=== PATIENT | female | born 1950 | race Caucasian/White ===

== ENCOUNTER 2023-07-03 16:15 | Emergency (ER) | payer MEDICARE, OTHER, SELFPAY ==
[2023-07-03 16:19] VITALS: BP 165/78
[2023-07-03 16:34] LABS: % Basophils 0.5 % (0-2); % Eosinophils 8.3 % (0-6); % Immature Granulocytes 0.4 % (0-0.5); % Lymphocytes 35.5 % (20.5-51.1); % Monocytes 6.2 % (1.7-9.3); % Neutrophils 49.1 % (42.2-75.2); Absolute Basophils 0.1 10^3/uL (0-0.2); Absolute Eosinophils 0.8 10^3/uL (0-0.7); Absolute Lymphocytes 3.3 10^3/uL (1.2-3.4); Absolute Monocytes 0.6 10^3/uL (0.1-0.6); Absolute Neutrophils 4.6 10^3/uL (1.4-6.5); Hematocrit 39.3 % (37.0-47.0); Hemoglobin 13.3 g/dL (12.0-16.0); Mean Corp Hgb Conc. 33.8 g/dL (33.0-37.0); Mean Corpuscular Hgb 31.1 pg (27.0-31.0); Mean Platelet Volume 9.1 fL (7.4-10.4); Nucleated Red Blood Cells % 0 %; Platelet Count 273 10^3/uL (130-400); Red Blood Cell Count 4.27 10^6/uL (4.20-5.40); White Blood Cell Count 9.3 10^3/uL (4.8-10.8)
[2023-07-03 17:01] LABS: ALT (SGPT) 37 U/L (0-35); AST (SGOT) 37 U/L (14-36); Albumin 3.9 g/dl (3.5-5.0); Alkaline Phosphatase 77 U/L (38-126); Blood Urea Nitrogen 11 mg/dl (7-17); Calcium 9.2 mg/dl (8.4-10.2); Carbon Dioxide 26 mmol/L (22-30); Glucose 133 mg/dl (70-99); Total Bilirubin 0.5 mg/dl (0.2-1.3); Total Protein 6.1 g/dl (6.3-8.2); eGFR > 60.00
[2023-07-03 17:09] LABS: Chloride 102 mmol/L (98-107); Potassium 4.5 mmol/L (3.5-5.1); Sodium 139 mmol/L (135-145)
[2023-07-03 19:28] VITALS: BP 136/78
[2023-07-03 19:30] VITALS: BP 136/78; BMI 30.3
--- NOTE | 2023-07-03 19:35 | ED.GENMED ---
History of Present Illness
General
Chief Complaint: Dizziness
Source: patient
Time Seen by Provider: 07/03/23 19:11
Travel History
Have you had any contact with someone who has COVID-19?: No
Do you have any symptoms of coronavirus? Fever > 100 degrees, chills, cough, shortness of breath, sore throat, loss of taste or smell, muscle aches, or headache?: No
History of Present Illness
History of Present Illness:
73-year-old female sent to the emergency room from [facility] for evaluation of dizziness. Patient states she has been feeling dizzy for the past week. She has a mild headache on and off. Denies any focal weakness numbness or tingling.
Patient states she has had vertigo in the past and this does not feel like vertigo. She denies a sense of spinning but rather feels a wavy sensation when she gets up. She feels like she is not walking steadily. Symptoms are not present while she
lays perfectly still but started when she moves.
Past History
Past History
ED Past Medical History: Arrthythmia (afib), CAD, HTN, NIDDM, WI and Other (Spinal stenosis)
ED Past Surgical History: Gynecological (Hysterectomy), Orthopedic and Other (Hernia repair X2)
Social History
Tobacco: Former smoker
Alcohol: None
Drug: None
Personal:
Living: with family
Family History
Family History: Other (Father with spinal cancer, is breast cancer and diabetes in the family)
Phy Exam
Physical Exam
Physical Exam:
General: Awake, Alert, Oriented X3. No acute distress.
Vitals: unremarkable
Head: Atraumatic
Eyes: Pupils equal, EOMI, no nystagmus
Throat: Airway intact, no exudates
Neck: Trachea midline
Lungs: Clear and equal b/l
Heart: Regular rate, no murmurs
Abd: Soft, Nontender, No pulsatile mass
Neuro: Cranial nerves intact, muscle strength equal bilaterally, cerebellar exam normal
Skin: Warm, dry, no rash
Extremities: pulses equal b/l, no edema
Course
Orders/Labs/Results
Orders:
Orders
07/03/23 16:28
Complete Blood Count/With Diff Urgent
Comprehensive Metabolic Panel Urgent
07/03/23 19:21
CT Head W/o Iv Contrast Urgent
Comment:
Reason For Exam: dizziness, headache
Abnormal Lab Results
07/03/23
16:28
MCH 31.1 H pg
(27.0-31.0)
Absolute Eos (auto) 0.8 H 10^3/uL
(0-0.7)
Eosinophils % 8.3 H %
(0-6)
Glucose 133 H mg/dl
(70-99)
AST 37 H U/L
(14-36)
ALT 37 H U/L
(0-35)
Total Protein 6.1 L g/dl
(6.3-8.2)
07/03/23 16:28
07/03/23 16:28
Vital Signs
Initial and Last Documented VS:
Initial Vital Signs
Temp Pulse Resp BP Pulse Ox
97.8 F 67 18 165/78 97
07/03/23 16:19 07/03/23 16:19 07/03/23 16:19 07/03/23 16:19 07/03/23 16:19
Last Documented Vital Signs
Temp Pulse Resp BP Pulse Ox
97.8 F 62 18 116/65 92
07/03/23 16:19 07/03/23 19:30 07/03/23 19:30 07/03/23 20:00 07/03/23 20:30
MDM/Problems Addressed
Differential Diagnosis Includes:
Labyrinthitis, dehydration, anemia, CVA
MDM/Problems Addressed:
Patient has a normal neurologic exam here. Her labs are unremarkable. CT shows no acute abnormality. Patient has been having symptoms for over a week. My suspicion for acute ischemic event is low. Patient follow-up primary care doctor for
carotid ultrasounds if he feels appropriate.
Chronic conditions affecting care: HTN
*Radiology
Radiology exam reviewed: radiology read reviewed
*Pulse Oximetry
Patient hypoxic: no
*Critical Care Note
Total Time (30-74mins, 75-104mins- exclusive of procedures): Not Applicable
ED Attending Note
-
Portions of this chart may have been created with voice recognition software.� Occasional wrong word or��sound alike� substitutions may have occurred due to the inherent limitations of voice recognition software.
Discharge Plan
Departure
Patient Disposition: Home (Routine Discharge)
Date of Disposition: 07/03/23
Time of Disposition: 21:30
Patient with high blood pressure during this ER visit?: No
Condition: Good
Discharge Problem:
Dizziness
Instructions: Dizziness
Prescriptions:
No Action
lidocaine 1 PATCH adhesive patch,medicated
2 patch topical DAILY PRN (Reason: back pain)
aspirin 81 MG tablet,chewable
81 mg PO HS
Eliquis 5 MG tablet
5 mg PO BID
Patient Comments:
stop 2 days pre-op
carvedilol 6.25 MG tablet
6.25 mg PO BID Qty: 60 1RF
isosorbide mononitrate 30 mg Tablet Extended Release 24 Hr
30 mg PO DAILY
meclizine 25 mg Tablet
25 mg PO PRN PRN (Reason: vertigo)
metformin 1,000 mg Tablet
1,000 mg PO QPM
Systane Ultra 0.4-0.3 % Drops
1 drp BOTH EYES DAILY
lutein 20 mg Tablet
20 mg PO DAILY
Jardiance 10 mg Tablet
10 mg PO DAILY
melatonin 10 mg Tablet,Chewable
20 mg PO PRN PRN (Reason: sleep)
Glucocil
2 cap PO BID
Patient Comments:
after lunch & dinner
docusate sodium 100 mg Capsule
100 mg PO BID Qty: 60 0RF
oxycodone 5 mg Tablet
2.5 mg PO Q4HPRN PRN (Reason: moderate pain) Qty: 10 0RF
ibuprofen 600 mg tablet
600 mg PO Q6 Qty: 60 0RF
atorvastatin 40 MG tablet
40 mg PO QPM Qty: 30 0RF
acetaminophen [Tylenol Extra Strength] 500 MG tablet
1,000 mg PO Q8H PRN (Reason: mild pain) 0RF
Referrals:
Manuel Galvan, DO [Family Provider] -
Activity Restrictions/Additional Instructions:
Please follow up with Dr. Galvan for further evaluation of your dizziness. Your head CT today is normal.
Interventions
Interventions:
*Risk Screen - Suicide Last Done: 07/03/23 16:19
*General Assessment Last Done: 07/03/23 16:19
*Neglect/Abuse Screening Last Done: 07/03/23 16:19
*ED COVID-19 Vaccine History Last Done: 07/03/23 19:05
*Nursing Disposition Last Done: 07/03/23 21:57
ED- Neurological Assessment Last Done: 07/03/23 19:30
Discharge Date and Time
Discharge Date/Time: 07/03/23 21:57
[2023-07-03 20:00] VITALS: BP 116/65
== END 2023-07-03 21:57 | disposition home or self-care (01) ==
LOC: EMR 16:15
PROVIDERS: Emergency Medicine; EMERGENCY PHYSICIAN Emergency Medicine; FAMILY PHYSICIAN Family Medicine
DX: R42 Dizziness and giddiness (principal); R26.81 Unsteadiness on feet; I10 Essential (primary) hypertension; Z87.891 Personal history of nicotine dependence
CPT/HCPCS: 99284; 70450; 80053; 85025

== ENCOUNTER → 2023-07-31 06:33 | Outpatient (REF) | payer MEDICARE, OTHER, SELFPAY ==
[2023-07-31 09:59] LABS: % Basophils 0.5 % (0-2); % Eosinophils 6.2 % (0-6); % Immature Granulocytes 0.2 % (0-0.5); % Lymphocytes 30.8 % (20.5-51.1); % Monocytes 7.2 % (1.7-9.3); % Neutrophils 55.1 % (42.2-75.2); Absolute Basophils 0.1 10^3/uL (0-0.2); Absolute Eosinophils 0.6 10^3/uL (0-0.7); Absolute Monocytes 0.7 10^3/uL (0.1-0.6); Absolute Neutrophils 5.3 10^3/uL (1.4-6.5); Hematocrit 41.2 % (37.0-47.0); Hemoglobin 13.4 g/dL (12.0-16.0); Mean Corp Hgb Conc. 32.5 g/dL (33.0-37.0); Mean Corpuscular Hgb 30.7 pg (27.0-31.0); Mean Corpuscular Volume 94.5 fL (81.0-99.0); Mean Platelet Volume 9.5 fL (7.4-10.4); Nucleated Red Blood Cells % 0 %; Platelet Count 297 10^3/uL (130-400); Red Blood Cell Count 4.36 10^6/uL (4.20-5.40); Red Cell Dist. Width 14.1 % (11.5-14.5); White Blood Cell Count 9.6 10^3/uL (4.8-10.8)
[2023-07-31 10:08] LABS: Urine Albumin Negative (Neg - Trace); Urine Bilirubin Negative (Negative); Urine Character Clear (Clear); Urine Color Yellow; Urine Glucose 3+ (Negative); Urine Ketone Negative (Negative); Urine Leukocyte Trace (Negative); Urine Nitrite Negative (Negative); Urine Occult Blood 1+ (Negative); Urine Urobilinogen Negative (Neg - 1+)
[2023-07-31 10:16] LABS: ALT (SGPT) 27 U/L (0-35); AST (SGOT) 30 U/L (14-36); Albumin 4.2 g/dl (3.5-5.0); Alkaline Phosphatase 67 U/L (38-126); Blood Urea Nitrogen 17 mg/dl (7-17); Calcium 9.3 mg/dl (8.4-10.2); Carbon Dioxide 29 mmol/L (22-30); Chloride 103 mmol/L (98-107); Creatine Phosphokinase 53 U/L (30-135); Glucose 116 mg/dl (70-99); HDL Cholesterol 34 mg/dl; LDL Cholesterol, Calculated 23 mg/dl; Phosphorus 4.4 mg/dl (2.5-4.5); Potassium 4.3 mmol/L (3.5-5.1); Sodium 139 mmol/L (135-145); Total Bilirubin 0.5 mg/dl (0.2-1.3); Total Cholesterol 77 mg/dl (50-199); Total Protein 6.3 g/dl (6.3-8.2); Triglyceride 102 mg/dl (10-149); Uric Acid 3.8 mg/dl (2.5-6.2); Very Low Density Lipoprotein 20 mg/dl (0-30); eGFR > 60.00
[2023-07-31 10:26] LABS: Free T4 1.15 ng/dl (0.78-2.19)
[2023-07-31 10:40] LABS: CEA 2.46 ng/ml; TSH 2.67 uIU/ml (0.47-4.68)
[2023-07-31 11:04] LABS: Microalbumin, Random Urine 1.2 mg/dl (0.6-1.7); Microalbumin/creatinine Ratio 16.6 mg/g
[2023-07-31 11:42] LABS: Urine Mucus Few; Urine Squamous Cell 0-2 /LPF (Few)
[2023-07-31 11:43] LABS: Urine Amorphous Seen; Urine Bacteria Few (Negative); Urine White Cell 0-2 /HPF (0-5)
[2023-07-31 13:07] LABS: Glycohemoglobin (HgbA1c) 6.9 % (4.0-5.6)
== END ==
LOC: HWLAB 06:33
PROVIDERS: ATTENDING PHYSICIAN Family Medicine
DX: E11.69 Type 2 diabetes mellitus with other specified complication (principal); E07.9 Disorder of thyroid, unspecified; Z80.0 Family history of malignant neoplasm of digestive organs; I10 Essential (primary) hypertension; E78.5 Hyperlipidemia, unspecified
CPT/HCPCS: 36415; 80053; 80061; 81003; 81015; 82043; 82378; 82550; 82570; 83036; 83735; 84100; 84439; 84443; 84550; 85025

== ENCOUNTER → 2023-10-02 11:11 | Outpatient (REF) | payer MEDICARE, OTHER, SELFPAY | LOC: HWWDC 11:11 | PROVIDERS: ATTENDING PHYSICIAN Family Medicine | DX: Z12.31 Encounter for screening mammogram for malignant neoplasm of breast (principal); Z78.0 Asymptomatic menopausal state; Z87.891 Personal history of nicotine dependence | CPT/HCPCS: 71271; 77063; 77067; 77080 ==

== ENCOUNTER 2024-02-02 03:51 | Observation (INO) | payer MEDICARE, OTHER, SELFPAY ==
[2024-02-01 22:54] VITALS: BP 199/80
[2024-02-01 23:19] VITALS: BP 145/120
[2024-02-01 23:31] LABS: % Basophils 0.4 % (0-2); % Eosinophils 3.8 % (0-6); % Immature Granulocytes 0.3 % (0-0.5); % Monocytes 7.1 % (1.7-9.3); % Neutrophils 56.4 % (42.2-75.2); Absolute Eosinophils 0.4 10^3/uL (0-0.7); Absolute Lymphocytes 3.3 10^3/uL (1.2-3.4); Absolute Monocytes 0.7 10^3/uL (0.1-0.6); Absolute Neutrophils 5.8 10^3/uL (1.4-6.5); Hematocrit 41.6 % (37.0-47.0); Hemoglobin 14.1 g/dL (12.0-16.0); Mean Corp Hgb Conc. 33.9 g/dL (33.0-37.0); Mean Corpuscular Hgb 31.4 pg (27.0-31.0); Mean Corpuscular Volume 92.7 fL (81.0-99.0); Mean Platelet Volume 9.4 fL (7.4-10.4); Nucleated Red Blood Cells % 0 %; Platelet Count 280 10^3/uL (130-400); Red Blood Cell Count 4.49 10^6/uL (4.20-5.40); White Blood Cell Count 10.2 10^3/uL (4.8-10.8)
[2024-02-01 23:58] LABS: Troponin I < 0.012 ng/ml
[2024-02-02] VITALS (23 sets, daily range): BP systolic 99–152; BP diastolic 55–82; BMI 29.2; BMI 30.1
[2024-02-02 00:05] LABS: ALT (SGPT) 39 U/L (0-35); AST (SGOT) 36 U/L (14-36); Albumin 4.5 g/dl (3.5-5.0); Alkaline Phosphatase 93 U/L (38-126); Blood Urea Nitrogen 18 mg/dl (7-17); Calcium 9.9 mg/dl (8.4-10.2); Carbon Dioxide 26 mmol/L (22-30); Chloride 102 mmol/L (98-107); Glucose 132 mg/dl (70-99); Potassium 4.4 mmol/L (3.5-5.1); Sodium 144 mmol/L (135-145); Total Bilirubin 0.6 mg/dl (0.2-1.3); Total Protein 6.6 g/dl (6.3-8.2); eGFR > 60.00
--- NOTE | 2024-02-02 00:30 | ED.GENMED ---
History of Present Illness
General
Chief Complaint: Chest Pain
Source: patient
Exam Limitations: none
Time Seen by Provider: 02/02/24 00:05
Nursing documentation reviewed up to this point in time: agreed with
History of Present Illness
History of Present Illness:
This a pleasant 73-year-old female who presents with chest pain that began around 6 PM last evening. She states that her chest pain began in her upper chest and cause some jaw numbness and pain. She took 3 baby aspirin. She had some nausea with
an episode of vomiting. Patient has a history of cardiac she had a heart attack many years ago but is unsure if pain feels similar to previous. She is a former smoker. She does have a history of fibrillation. She is on Eliquis and taken her dose
of carvedilol. She sees Dr. Feliciano
Past History
Past History
ED Past Medical History: Arrthythmia (afib), CAD, HTN, NIDDM, [place] and Other (Spinal stenosis)
ED Past Surgical History: Gynecological (Hysterectomy), Orthopedic and Other (Hernia repair X2)
Social History
Tobacco: Former smoker
Alcohol: None
Drug: None
Personal:
Living: with family
Family History
Family History: Other (Father with spinal cancer, is breast cancer and diabetes in the family)
Phy Exam
General Physical Exam
General Presentation: well appearing and no apparent distress
General Skin: warm and dry
General Habitus: normal
General Mental: alert
General Hydration: appears well hydrated
ENT Exam
ENT Exam: EOMI, pharynx normal, neck supple and normocephalic
Eye Exam
Eye Exam: PERRL, cornea clear and conjunctiva normal
Cardiovascular Exam
Cardiovascular Exam: regular rate/rhythm, no edema, no murmur and normal peripheral pulses
Pulmonary Exam
Pulmonary Exam: lungs clear, no respiratory distress, no rales, no crackles, no rhonchi, no stridor, no wheezing and no cough
Gastrointestinal Exam
Gastrointestinal Exam: normal bowel sounds, non tender, soft, no organomegaly, no pulsatile mass and non distended
Neurological Exam
Neurological Exam: alert, oriented x3, no motor deficits and speech normal
Musculoskeletal Exam
Musculoskeletal Exam: full ROM and no edema
Skin Exam
Skin Exam: normal color, warm/dry, no rash and no petechia
Psychiatric Exam
Psychiatric Exam: normal mood/affect
Scores
Heart Score for Chest Pain Patients
STEMI patient?: No
History: Moderately Suspicious
ECG: Normal
Age: >/= 65 years
Risk Factors: >/= 3 Risk Factors or History of CAD
Troponin: </= Normal Limit
Heart Score for Chest Pain Patients: 5
Heart Score Risk: 20.3% MACE over next 6 weeks
Course
Orders/Labs/Results
Orders:
Orders
02/01/24 22:51
Electrocardiogram (*1) Urgent
Reason for Study: Chest Pain
Electrocardiogram (*1) Urgent
Reason for Study: Chest Pain
Cardiac Monitoring- Treatment ONCE
EKG- Treatment ONCE
IV Insert/Care/Rem.- Treatment PRN
O2 Therapy [RESP] Urgent
Titrate/Wean O2 to maintain O2 sat greater than (%): 90
Special Instructions: Maintain sats >/=90%
Pulse Ox/spot Check [RESP] Urgent
Quantity: 1
Special Instructions: ON ROOM AIR
02/01/24 23:23
Complete Blood Count/With Diff Urgent
Comprehensive Metabolic Panel Urgent
Troponin I Urgent
02/02/24 00:29
Nitroglycerin Sublingual [Nitrostat (Sublingual)] 0.4 mg SL [id number] PRN
02/02/24 02:04
Nitroglycerin Ointment [Nitro-Bid] 1 inch TOPICAL NOW STA
Abnormal Lab Results
02/01/24
23:23
MCH 31.4 H pg
(27.0-31.0)
Absolute Monos (auto) 0.7 H 10^3/uL
(0.1-0.6)
BUN 18 H mg/dl
(7-17)
Glucose 132 H mg/dl
(70-99)
ALT 39 H U/L
(0-35)
02/01/24 23:23
02/01/24 23:23
Vital Signs
Initial and Last Documented VS:
Initial Vital Signs
Temp Pulse Resp BP Pulse Ox
97.9 F 53 19 199/80 96
02/01/24 22:54 02/01/24 22:54 02/01/24 22:54 02/01/24 22:54 02/01/24 22:54
Last Documented Vital Signs
Temp Pulse Resp BP Pulse Ox
97.9 F 60 21 122/68 92
02/01/24 22:54 02/02/24 01:45 02/02/24 01:45 02/02/24 01:18 02/02/24 01:45
*Critical Care Note
Total Time (30-74mins, 75-104mins- exclusive of procedures): Not Applicable
Update Note
Update Note:
Patient's pain was relieved with nitroglycerin. At this time I feel the patient need to be brought in for further observation. She is on Eliquis so no heparin will be started.
ED Attending Note
-
Portions of this chart may have been created with voice recognition software.� Occasional wrong word or��sound alike� substitutions may have occurred due to the inherent limitations of voice recognition software.
Discharge Plan
Departure
Patient Disposition: Admit
Date of Disposition: 02/02/24
Time of Disposition: 02:05
Admit to: Telemetry
Presentation/result/management discussed w/ accepting MD/DO: Hospitalist
Discharge Problem:
Chest pain, Hx of unstable angina
Prescriptions:
No Action
lidocaine 1 PATCH adhesive patch,medicated
2 patch topical DAILY PRN (Reason: back pain)
aspirin 81 MG tablet,chewable
81 mg PO HS
Eliquis 5 MG tablet
5 mg PO BID
Patient Comments:
stop 2 days pre-op
carvedilol 6.25 MG tablet
6.25 mg PO BID Qty: 60 1RF
isosorbide mononitrate 30 mg Tablet Extended Release 24 Hr
30 mg PO DAILY
meclizine 25 mg Tablet
25 mg PO PRN PRN (Reason: vertigo)
metformin 1,000 mg Tablet
1,000 mg PO QPM
Systane Ultra 0.4-0.3 % Drops
1 drp BOTH EYES DAILY
lutein 20 mg Tablet
20 mg PO DAILY
Jardiance 10 mg Tablet
10 mg PO DAILY
melatonin 10 mg Tablet,Chewable
20 mg PO PRN PRN (Reason: sleep)
Glucocil
2 cap PO BID
Patient Comments:
after lunch & dinner
docusate sodium 100 mg Capsule
100 mg PO BID Qty: 60 0RF
oxycodone 5 mg Tablet
2.5 mg PO Q4HPRN PRN (Reason: moderate pain) Qty: 10 0RF
ibuprofen 600 mg tablet
600 mg PO Q6 Qty: 60 0RF
atorvastatin 40 MG tablet
40 mg PO QPM Qty: 30 0RF
acetaminophen [Tylenol Extra Strength] 500 MG tablet
1,000 mg PO Q8H PRN (Reason: mild pain) 0RF
Referrals:
Manuel Galvan DO [Family Provider] -
Interventions
Interventions:
*Risk Screen - Suicide Last Done: 02/01/24 22:54
*General Assessment Last Done: 02/01/24 22:54
*Neglect/Abuse Screening Last Done: 02/01/24 22:54
*ED COVID-19 Vaccine History Last Done: 02/01/24 22:54
ED- Cardiac Assessment Last Done: 02/01/24 23:38
Discharge Date and Time
Print Language: SURINAMESE
[2024-02-02] MEDS: NITROSTAT (SUBLINGUAL) 0.4 MG SL ×3 (00:35→01:18)
[2024-02-02] MEDS: NITRO-BID 1 INCH TOPICAL (02:11)
--- NOTE | 2024-02-02 03:38 | HPS.HSE ---
Family Physician
-
Family Physician: Manuel Galvan
Chief Complaint
-
chest pain
History of Present Illness
Patient is a 73y F with PMH significant for hypertension, DM-II and ASCVD who presents to ED complaining of chest pain. Patient states that her pain began around 6PM this evening. Pain was across the entire chest and described as severe
tightness. She states pain was 8/10 at its height. Pain was accompanied by nausea with a few episodes of non-bloody emesis at home. Patient complained of sense of SOB and being unable to take a deep breath. She had radiation of her pain to the
jaw and tingling of the lips. Her symptoms persisted at home and she presented to the ED for further evaluation.
In the ED, patient has received 3 SL NTG and notes that she feels much improved from prior; however, she continues to have chest discomfort which she currently rates a 2/10.
Patient states that she has been having occasional episodes of chest discomfort for the past month or so. Symptoms are not clearly associated with activity / exertion. She states that these other episodes were much less severe and would resolve
within several minutes. No associated nausea, dyspnea or radiation of pain with those prior episodes.
Patient does have prior history of WI in 2016. She had cardiac cath at that time, but no stent was placed.
Medical History
Past Medical History
Past Medical History: Reports Other
Additional Past Medical History:
ASCVD / Prior WI
Hypertension
DM-II
Cervical DDD
Chronic Vertigo
Past Surgical History: Reports Other
Additional Past Surgical History:
Left Wrist Surgery
Incisional Hernia Repair
NANCY
Cervical Laminectomy and Fusion
Pelvic Floor Reconstruction
Cardiac Cath / No Stent (100% R PDA, 50% mid LAD) - 2016
Social History
Tobacco: Former Smoker (Quit smoking 7 years ago. > 40 pack years total use.)
Alcohol: None
Drug: None
Family History
Family History: Not pertinent
Allergies / Home Medications
Allergies reflects when Allergies were last updated in [facility].
Home Medications with original date entered in [facility]
Allergy/Medication List:
Allergies
Allergy/AdvReac Type Severity Reaction Status Date / Time
codeine [Codeine] Allergy Nausea Verified 07/03/23 16:18
diazepam [From Valium] Allergy very low BP Verified 07/03/23 16:18
morphine Allergy Nausea Verified 07/03/23 16:18
nitrofurantoin Allergy Unknown Verified 07/03/23 16:18
Penicillins Allergy Unknown Verified 07/03/23 16:18
pollen extracts Allergy HAYFEVER-SN Verified 07/03/23 16:18
EEZING/PAUL
ESTION
Home Medications
atorvastatin 40 mg tablet 40 mg PO QPM #30 tabs 04/03/19
apixaban 5 mg tablet (Eliquis) 5 mg PO BID Blood clot prevention/tx 06/01/20
aspirin 81 mg chewable tablet 81 mg PO HS Blood clot prevention/tx 06/01/20
carvedilol 6.25 mg tablet 6.25 mg PO BID ##60 06/01/20
empagliflozin 10 mg tablet (Jardiance) 10 mg PO DAILY 05/06/22
isosorbide mononitrate 30 mg tablet,extended release 24 hr 30 mg PO DAILY 05/06/22
lutein 20 mg tablet 20 mg PO DAILY 05/06/22
meclizine 25 mg tablet 25 mg PO PRN PRN vertigo 05/06/22
melatonin 10 mg chewable tablet 20 mg PO PRN PRN sleep 05/06/22
metformin 1,000 mg tablet 1,000 mg PO QPM 05/06/22
Review of Systems
-
History Source: Patient
A 12 point ROS was completed and negative except as noted: Yes
Constitutional: Denies Fever or Chills
EENT: Denies Sore Throat
Respiratory: Reports Trouble Breathing; Denies Cough
Cardiac: Reports Chest Pain; Denies Diaphoresis, Palpitations or Syncope
Abdomen/GI: Reports Nausea and Vomiting; Denies Abdominal Pain or Diarrhea
: Denies Dysuria, Frequency or Flank Pain
Musculoskeletal: Reports Other (Neck pain / stiffness.); Denies Joint Pain or Edema
Neurological: Denies Dizzy or Headache
Psych: Denies Depression or Anxiety
Physical Exam
Vital Signs
Vital Signs
Temp Pulse Resp BP Pulse Ox
97.9 F 62 16 131/60 96
02/01/24 22:54 02/02/24 03:15 02/02/24 03:15 02/02/24 02:30 02/02/24 03:15
Physical Exam
General: Other (73y F in no acute distress.)
HEENT: Moist mucous membranes
Respiratory: Clear; No Wheezes, Rales or Rhonchi
Cardiac: S1/S2 and Regular Rhythm; No Murmur
GI: Soft, Non Tender, Non Distended and Normal Bowel Sounds
Musculoskeletal: No Clubbing, No Cyanosis and No Edema
Neuro: AO x 3
Laboratory Results
-
02/01/24 23:23
02/01/24 23:23
Laboratory Results
Total Bilirubin 0.6 mg/dl (0.2-1.3) 02/01/24 23:23
AST 36 U/L (14-36) 02/01/24 23:23
ALT 39 U/L (0-35) H 02/01/24 23:23
Alkaline Phosphatase 93 U/L (38-126) 02/01/24 23:23
Troponin I < 0.012 ng/ml 02/01/24 23:23
Impression/Plan
-
A/P: Patient is a 73y F with PMH significant for ASCVD, HTN and DM-II who presents to ED complaining of chest pain.
Chest Pain / ACS
ASCVD
- Admit for further evaluation and treatment.
- Excellent story for ACS in patient with multiple risk factors - including known coronary disease.
- IV heparin overnight. IV NTG and titrate until pain free (patient is intolerant of morphine / similar medications).
- Hold Eliquis acutely.
- Continue ASA, statin, etc.
- Follow serial troponin, symptoms, etc.
- Cardiology evaluation in the AM / possible updated ischemic evaluation.
- Follow for any new / worsening symptoms.
Benign Hypertension
- Stable. Continue current medications and adjust as needed.
DM-II
- Stable. Hold PO medications acutely.
- Follow glucose and cover with SSI as needed.
- Update A1C.
Cervical DDD
- Stable. s/p prior lami / fusion.
- Patient reports occasional limb weakness in arms / legs - no current or acute symptoms.
Chronic Vertigo
- Stable. No active symptoms at present.
DVT Prophylaxis: On therapeutic heparin at present.
Code Status: Full
[2024-02-02 06:42] LABS: Hematocrit 40.6 % (37.0-47.0); Hemoglobin 13.4 g/dL (12.0-16.0); Mean Corpuscular Hgb 30.5 pg (27.0-31.0); Mean Corpuscular Volume 92.3 fL (81.0-99.0); Mean Platelet Volume 9.3 fL (7.4-10.4); Platelet Count 285 10^3/uL (130-400); White Blood Cell Count 9.9 10^3/uL (4.8-10.8)
[2024-02-02 06:49] LABS: Troponin I < 0.012 ng/ml
[2024-02-02 06:55] LABS: Blood Urea Nitrogen 16 mg/dl (7-17); Calcium 9.7 mg/dl (8.4-10.2); Carbon Dioxide 26 mmol/L (22-30); Chloride 103 mmol/L (98-107); Estimated Creatinine Clearance 88 ml/min; Glucose 122 mg/dl (70-99); HDL Cholesterol 36 mg/dl; LDL Cholesterol, Calculated 29 mg/dl; Potassium 4.5 mmol/L (3.5-5.1); Sodium 143 mmol/L (135-145); Total Cholesterol 81 mg/dl (50-199); Triglyceride 82 mg/dl (10-149); Very Low Density Lipoprotein 16 mg/dl (0-30); eGFR > 60.00
[2024-02-02 07:29] LABS: Hepatitis C Antibody Negative (Negative)
[2024-02-02] MEDS: PROTONIX IV 40 MG IV (07:35)
[2024-02-02] MEDS: NSS (PRESERVATIVE FREE) 10 ML IV (07:36)
[2024-02-02] MEDS: HEPARIN 25000 UNITS/250 ML IV (07:38)
[2024-02-02] MEDS: NITROGLYCERIN PREMIX 250 IV (07:55)
--- NOTE | 2024-02-02 08:16 | PTCARENOTE ---
Pt started on heparin and nitroglycerin drips per MD order. Pt stated that she continues to have 'chest heaviness' across both sides of her chest. She rates this discomfort as 0.5 out of 10. VSS. Will monitor.
--- NOTE | 2024-02-02 08:33 | CON.CAR ---
Addendum entered and electronically signed by Frank Dorantes MD 02/02/24 09:03:
I saw and examined the patient.
The PLUG STITCHER's note was reviewed and I agree with the note.
Comment: 73-year-old female with known CAD prior history of 100% occluded PAD A and 20-6 with intramyocardial bridge, PAF on Eliquis, hypertension hyperlipidemia and peh-qujasfy-hstsagezy diabetes who presents for evaluation of sudden onset mid
substernal chest pressure and pain that began while driving last night associated with nausea. This was not relieved until she received nitroglycerin in the ED. Currently, she is on a nitroglycerin drip and heparin drip. She is feeling much
better. She does have a left-sided chest pain that is separate from the pain she presented with. Pain was similar to the pain she had prior to 2016. On exam she is a regular rate and rhythm normal S1-S2 no murmurs or gallops were appreciated
lungs were clear to auscultation good radial pulse bilaterally. EKG showed normal sinus rhythm without ischemia. Troponins were negative. However, story is concerning enough for ACS. Would recommend proceeding to cardiac catheterization for
further evaluation of her coronary vasculature. She will continue with her heparin drip and nitro drip until that time, keep NPO. If coronary catheterization shows no new evidence of disease, would recommend increasing beta-hosea if heart rate
allows given intramyocardial bridge.
Original Note:
Consultation
Consultation Request
Date/Time Consultation Requested: 02/02/24 5:40a
Date/Time Consultation Performed: 02/02/24 8a
Requesting Provider: Dr. Rankin
Performing Provider: BENNY Mane for Dr. Dorantes
Reason for Consultation: chest pain
Medical History
-
Chief Complaint: chest pain
History of Present Illness:
Mrs. Hill is a 73 yo female with CAD (100% distal PDA 2016 - med RX) intramyocardial bridge in mid LAD, paroxysmal Afib on Eliquis, HTN, HLD, obesity, NIDDM, and former smoker (quit 02/2019), who presents to the ER with c/o chest pain last night
at 6pm while driving in her car. Chest pain was midsternal to left chest pain with associated nausea and vomiting. In the ER she was given 3 SL NTG tabs with improvement of pain but not resolved. She was admitted, on IV Heparin and IV NTG, still
with mild chest pain. She admits to feeling DEJESUS and chest tightness when walking for the last 2 months. Currently she c/o mild chest pain.
Past Medical History
Past Medical History: Other (as above)
Social History
Tobacco: Former Smoker (quit 2019)
Living: With Family (son)
Family History
Family History: Reviewed & Not Pertinent
Allergies / Home Medications
Allergy/AdvReac Type Severity Reaction Status Date / Time
codeine [Codeine] Allergy Nausea Verified 07/03/23 16:18
diazepam [From Valium] Allergy very low BP Verified 07/03/23 16:18
morphine Allergy Nausea Verified 07/03/23 16:18
nitrofurantoin Allergy Unknown Verified 07/03/23 16:18
Penicillins Allergy Unknown Verified 07/03/23 16:18
pollen extracts Allergy HAYFEVER-SN Verified 07/03/23 16:18
EEZING/PAUL
ESTION
�Medication �Instructions �Recorded �Confirmed �Type
atorvastatin 40 mg tablet 40 mg PO QPM #30 tabs 04/03/19 02/02/24 Rx
apixaban 5 mg tablet (Eliquis) 5 mg PO BID Blood clot 06/01/20 02/02/24 History
prevention/tx
aspirin 81 mg chewable tablet 81 mg PO HS Blood clot 06/01/20 02/02/24 History
prevention/tx
carvedilol 6.25 mg tablet 6.25 mg PO BID ##60 06/01/20 02/02/24 Rx
empagliflozin 10 mg tablet 10 mg PO DAILY 05/06/22 02/02/24 History
(Jardiance)
isosorbide mononitrate 30 mg 30 mg PO DAILY 05/06/22 02/02/24 History
tablet,extended release 24 hr
lutein 20 mg tablet 20 mg PO DAILY 05/06/22 02/02/24 History
meclizine 25 mg tablet 25 mg PO PRN PRN vertigo 05/06/22 02/02/24 History
melatonin 10 mg chewable tablet 20 mg PO PRN PRN sleep 05/06/22 02/02/24 History
metformin 1,000 mg tablet 1,000 mg PO QPM 05/06/22 02/02/24 History
Review of Systems
-
History Source: Patient
All other systems: Negative unless noted
Physical Exam
Vital Signs
Temp Pulse Resp BP Pulse Ox
97.8 F 56 18 142/66 94
02/02/24 07:30 02/02/24 08:15 02/02/24 07:30 02/02/24 08:15 02/02/24 07:30
Lab Results
02/02/24 06:12
02/02/24 06:12
Troponin I < 0.012 ng/ml 02/02/24 06:12
Physical Exam
General: Well Developed, Well Nourished and No Apparent Distress
HEENT: Normocephalic, Anicteric and Moist Mucous Membranes
Respiratory: Clear and Non Labored Respirations
Cardiac: S1/S2 and Regular Rhythm (bradycardia in the 50s at times)
Breast: Deferred by me
GI: Soft, Non Tender, Non Distended and Normal Bowel Sounds
Rectal: Deferred by Provider
Genito-urinary: No Costovertebral Tender
Musculoskeletal: No Clubbing, No Cyanosis and No Edema
Skin: Warm and Dry
Neuro: AO x 3
Hematologic/Lymphatic: No Lymphadenopathy
Psych: Calm
Impression / Plan
-
Chest pain - concerning for angina.
- still with mild chest pain.
- IV Heparin, IV NTG drip.
- troponin < 0.012 x 2, EKG w/o ischemia.
- plan for cath today.
CAD - known 100% distal PDA in 2016 and intramyocardial bridge mid LAD.
- now with angina.
- IV Heparin, IV NTG drip.
- continue ASA.
- Lexiscan 05/2020 normal perfusion, no ischemia.
- cath today.
Paroxysmal Afib - stable in sinus libby.
- on Eliquis and held this am.
HTN - stable on Coreg and Imdur.
- continue and monitor.
HLD - on Lipitor.
- LDL 29 on Lipitor 40mg.
- goal LDL < 55.
NIDDM - per hospitalist.
Data Reviewed
-
EKG: Tracing Personally Visualized and interpreted (SB 50 bpm)
Medical Tests (Nuc Med, Echo etc): Report Reviewed by me (Maria Esther as above)
Labs: Labs Reviewed by me
Old Records: Reviewed
[2024-02-02] MEDS: COREG 6.25 MG PO (08:34)
[2024-02-02 08:42] LABS: Glucose - Point of Care 119 mg/dl (70-99)
[2024-02-02 09:28] LABS: Glycohemoglobin (HgbA1c) 6.4 % (4.0-5.6)
--- NOTE | 2024-02-02 10:12 | W.PN.HOSP.TC ---
Today's Communication/Plan
-
Cardiac cath
Assessment / Plan
Assessment / Plan
73yo F with PMH of HTN, CAD with prior UT, known total occlusion of PAD, afib on eliquis, DM2, cervical DDD s/p fusion who presents to ED 01/31 for chest pain
Chest pain
- Her story of episodic chest pain/heaviness previously lasting a few minutes, and now progressed in intensity and duration is concerning for cardiac etiology
- EKG in ED with no ischemic changes, troponin negative
- Given her cardiac history and high risk factors, she was initially managed with nitroglycerine, heparin drip. Cardiology following, appreciate recs.
- Continue telemetry, heparin drip, nitroglycerin, aspirin
- Plan for coronary catheterization with cardiology today
- Will reassess plan at that time
- Continue trending troponin
Paroxysmal afib
- Eliquis 5mg bid at home, dose held this AM
- Currently in sinus rhythm
HTN
- Continue carvedilol 6.25mg bid
- Continue isosorbide mononitrate 30mg qd
Diabetes
- BG 122-132
- NPO now but will return to diabetic diet when able
- Insulin sliding scale prn inpatient
- Continue home jardiance 10mg qd
HLD
- continue atorvastatin 40mg qpm
Code status: full
VTE ppx: heparin drip
Diet: NPO
Dispo planning: TBD
Anticipated Discharge: 24 - 48 hours
Subjective/Interval History
-
Date of Service: February 02, 2024
No acute events overnight. Continues to report chest pain today, though it has decreased in intensity overnight. She's not sure what helped improve the pain. She states it did not improve immediately following nitroglycerine administration. Denies
abdominal pain, nausea, vomiting, diarrhea, constipation. No pain/difficulty swallowing. NPO currently, but otherwise tolerates PO diet.
Objective Data
-
Labs:
Laboratory Results
02/01/24 02/02/24 02/02/24
23:23 06:00 06:12
WBC 10.2 Pending 9.9
Hgb 14.1 Pending 13.4
Hct 41.6 Pending 40.6
Plt Count 280 Pending 285
APTT 32.0
Sodium 144 143
Potassium 4.4 4.5
Chloride 102 103
Carbon Dioxide 26 26
BUN 18 H 16
Creatinine 0.7 0.6
Glucose 132 H 122 H
Calcium 9.9 9.7
Total Bilirubin 0.6
AST 36
ALT 39 H
Alkaline Phosphatase 93
02/02/24
13:50
WBC
Hgb
Hct
Plt Count
APTT Pending
Sodium
Potassium
Chloride
Carbon Dioxide
BUN
Creatinine
Glucose
Calcium
Total Bilirubin
AST
ALT
Alkaline Phosphatase
Vital Signs:
Vital Signs
Temp Pulse Resp BP Pulse Ox
97.8 F 66 18 145/65 94
02/02/24 07:30 02/02/24 08:34 02/02/24 07:30 02/02/24 08:34 02/02/24 07:30
Review of Systems
-
History Source: Patient
All other systems: Reviewed and negative
Physical Exam
-
General: Well Developed, Well Nourished, No Apparent Distress, Comfortable and Conversant
HEENT: Normocephalic and Atraumatic
Respiratory: Clear to Auscultation, Non Labored Respirations and Other (well healed vertical surgical scar posterior neck midline)
Cardiac: Regular Rhythm, S1/S2 and Bradycardic
GI: Soft, Nontender, Nondistended and Normal Bowel Sounds
Musculoskeletal: No Cyanosis and Other (trace edema lower extremities symmetric bilaterally)
Skin: Warm and Dry
Neuro: Awake, Alert, Oriented and AO x 3
Psych: Calm and Intact Judgement/Insight
--- NOTE | 2024-02-02 11:49 | CM ---
Chart reviewed. Patient is independent of ADLS, lives in a [facility], [address] [facility], ambulates with a walking stick. Plan is for the patient to return home. CM to follow
[2024-02-02 12:36] LABS: Glucose - Point of Care 101 mg/dl (70-99)
[2024-02-02] MEDS: NSS 1000 IV (15:25)
[2024-02-02 15:30] LABS: Glucose - Point of Care 93 mg/dl (70-99)
--- NOTE | 2024-02-02 15:38 | ITS.CL.CATH ---
Loan Examiner - Catheterization
Cardiac Catheterization
Procedure Report:
CARDIAC CATHETERIZATION REPORT
Date of Procedure: 02/02/2024
Referring: Maribel Dorantes MD
Indication: Chest pain (negative troponin x 3)
�
HEMODYNAMIC DATA
AO: 143/74
LV: 143/16
LEFT VENTRICULOGRAPHY: Normal left ventricular wall motion with EF 58%
�
CORONARY ANGIOGRAPHY
Dominance: Right
Left Main: Normal
LAD: 30% mid LAD stenosis distal to the takeoff of the large bifurcating first diagonal branch. The remainder of the LAD has mild luminal irregularities
Circumflex: Normal
RCA: Normal dominant vessel
�
Closure Device: None-the procedure was performed via the right radial artery. The Bradly's test was normal prior to the procedure.
�
Radiation (mGy): 449
DAP (cm2.Gy): 33.7
Fluoroscopy time: 62.6 minutes
�
CONCLUSIONS
1:�Systemic hypertension
2:�Normal left ventricular function with EF 58%
3. Mild nonobstructive CAD as described
4. On careful review of the angiogram from February 2016, at that time the most distal one centimeter of RPDA was occluded. The vessel is now patent at the site.
�
�
Copy to: Maribel Dorantes MD, Manuel Galvan DO
�
Jair Garcia MD, [facility], [facility]
[2024-02-02] MEDS: LIPITOR 40 MG PO (16:47)
--- NOTE | 2024-02-02 17:55 | PTCARENOTE ---
Received pt post cardiac cath at 1500. Right radial cath site intact w/13 ml of air. VSS. Meds as ordered. Pt denies any chest discomfort. Will monitor.
--- NOTE | 2024-02-02 19:14 | W.DCSUMMARY ---
Documented by User: Cori Nugent MD, Resident 02/02/24 21:27
Discharge Summary
Discharge Data
Date of Admission: 02/02/24
Date of Discharge: 02/02/24
-
Pending Results: No
Hospital Course
Discharging Physician : Dr. Nugent, Dr. Maharaj
Disposition : Home
Primary care physician : Dr. Galvan
Principal Discharge diagnosis : Noncardiac chest pain
Chronic Discharge diagnosis : CAD with history of DC, afib, HTN, DM2, HLD, cervical DDD s/p cervical fusion
Hospital Course : Presented to the ED for chest pain/heaviness unrelieved by rest. In the ED, no ischemic changes were observed on EKD and her troponin was negative. The pain was not relieved by nitroglycerine or rest. Given her cardiac history and
high risk factors, she was started on heparin drip and underwent cardiac catheterization. Cath revealed mild nonobstructive CAD. She was stable for discharge home with outpatient follow up.
Important imaging findings :
Chest xray 02/01
IMPRESSION:
No active pulmonary process.
Procedure findings :
Cardiac catheterization 02/01
CONCLUSIONS
1:�Systemic hypertension
2:�Normal left ventricular function with EF 58%
3. Mild nonobstructive CAD as described
4. On careful review of the angiogram from February 2016, at that time the most distal one centimeter of RPDA was occluded. The vessel is now patent at the site.
Discharge Plan
-
Patient Disposition: Home (Routine Discharge)
Discharge Diagnosis/Procedures: Cardiac cath - negative for obstructive CAD
Chest pain
Condition: Good
Diet: Low Cholesterol
Driving Restrictions: No driving for 24 hours
Bathing Restrictions: None
Activity Restrictions/Additional Instructions:
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 You should schedule appointments for follow-up within 7 days of being discharged from the hospital.
Instructions: Chest pain
Stand Alone Forms: DC Instructions- Cath/EP Lab
Referrals:
Gisel Mckee NP [Specified Professional Personl] - 02/21/24 9:00 am
Manuel Galvan DO [Family Provider] -
Additional Discharge Medication Instructions: Hold Metformin post cath, resume on Sat evening
Resume Eliquis in am Sat
Prescriptions:
Continued
aspirin 81 MG tablet,chewable
81 mg PO HS
carvedilol 6.25 MG tablet
6.25 mg PO BID Qty: 60 1RF
isosorbide mononitrate 30 mg Tablet Extended Release 24 Hr
30 mg PO DAILY
meclizine 25 mg Tablet
25 mg PO PRN PRN (Reason: vertigo)
Patient Comments:
hasn't taken in awhile approx 4 mts ago for last dose
metformin 1,000 mg Tablet
1,000 mg PO QPM
lutein 20 mg Tablet
20 mg PO DAILY
Jardiance 10 mg Tablet
10 mg PO DAILY
melatonin 10 mg Tablet,Chewable
20 mg PO PRN PRN (Reason: sleep)
atorvastatin 40 MG tablet
40 mg PO QPM Qty: 30 0RF
Held
Eliquis 5 MG tablet
5 mg PO BID
Hold Instructions: Resume Monday
Patient Comments:
stop 2 days pre-op
Discharge Orders:
Discharge Patient (As Directed); Ordered 02/02/24
Ordered By: Faustino Maharaj
Care Plan Goals
Care Plan Goals:
Problem: Readiness for enhanced knowledge related to diagnosis and treatment plan
Goal: Understand your diagnosis and treatment plan needs, including medications if applicable.
Instructions: Know your diagnosis, underlying causes and treatment plan options, including medications if applicable. Consult with your health care team to learn about your diagnosis and treatment plan, including medications if applicable.
Discharge Date and Time
Discharge Date/Time: 02/02/24 19:14
Print Language: FINNISH

Documented by User: Faustino Maharaj DO 02/04/24 13:37
Discharge Summary
Discharge Data
Date of Admission: 02/02/24
Date of Discharge: 02/04/24
Discharge Plan
-
Patient Disposition: Home (Routine Discharge)
Discharge Diagnosis/Procedures: Cardiac cath - negative for obstructive CAD
Chest pain
Condition: Good
Diet: Low Cholesterol
Driving Restrictions: No driving for 24 hours
Bathing Restrictions: None
Activity Restrictions/Additional Instructions:
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 You should schedule appointments for follow-up within 7 days of being discharged from the hospital.
Instructions: Chest pain
Stand Alone Forms: DC Instructions- Cath/EP Lab
Referrals:
Gisel Mckee NP [Specified Professional Personl] - 02/21/24 9:00 am
Manuel Galvan DO [Family Provider] -
Additional Discharge Medication Instructions: Hold Metformin post cath, resume on Sat evening
Resume Eliquis in am Sat
Prescriptions:
Continued
aspirin 81 MG tablet,chewable
81 mg PO HS
carvedilol 6.25 MG tablet
6.25 mg PO BID Qty: 60 1RF
isosorbide mononitrate 30 mg Tablet Extended Release 24 Hr
30 mg PO DAILY
meclizine 25 mg Tablet
25 mg PO PRN PRN (Reason: vertigo)
Patient Comments:
hasn't taken in awhile approx 4 mts ago for last dose
metformin 1,000 mg Tablet
1,000 mg PO QPM
lutein 20 mg Tablet
20 mg PO DAILY
Jardiance 10 mg Tablet
10 mg PO DAILY
melatonin 10 mg Tablet,Chewable
20 mg PO PRN PRN (Reason: sleep)
atorvastatin 40 MG tablet
40 mg PO QPM Qty: 30 0RF
Held
Eliquis 5 MG tablet
5 mg PO BID
Hold Instructions: Resume Monday
Patient Comments:
stop 2 days pre-op
Discharge Orders:
Discharge Patient (As Directed); Ordered 02/02/24
Ordered By: Faustino Maharaj
Care Plan Goals
Care Plan Goals:
Problem: Readiness for enhanced knowledge related to diagnosis and treatment plan
Goal: Understand your diagnosis and treatment plan needs, including medications if applicable.
Instructions: Know your diagnosis, underlying causes and treatment plan options, including medications if applicable. Consult with your health care team to learn about your diagnosis and treatment plan, including medications if applicable.
Discharge Date and Time
Discharge Date/Time: 02/02/24 19:14
Print Language: FINNISH
== END 2024-02-02 19:14 | disposition home or self-care (01) ==
LOC: IVU 03:51
PROVIDERS: Student in an Organized Health Care Education/Training Program; ADMITTING PHYSICIAN Hospitalist; ATTENDING PHYSICIAN Internal Medicine; EMERGENCY PHYSICIAN Student in an Organized Health Care Education/Training Program; FAMILY PHYSICIAN Family Medicine; OTHER PHYSICIAN Internal Medicine Cardiovascular Disease
DX: R07.9 Chest pain, unspecified (principal); R68.84 Jaw pain; R20.0 Anesthesia of skin; R00.1 Bradycardia, unspecified; R11.2 Nausea with vomiting, unspecified; I25.119 Atherosclerotic heart disease of native coronary artery with unspecified angina pectoris; I10 Essential (primary) hypertension; E11.9 Type 2 diabetes mellitus without complications; M50.30 Other cervical disc degeneration, unspecified cervical region; E78.5 Hyperlipidemia, unspecified; E66.9 Obesity, unspecified; R42 Dizziness and giddiness; I48.0 Paroxysmal atrial fibrillation; I25.2 Old myocardial infarction; Z90.710 Acquired absence of both cervix and uterus; Z83.3 Family history of diabetes mellitus; Z80.3 Family history of malignant neoplasm of breast; Z87.891 Personal history of nicotine dependence; Z79.82 Long term (current) use of aspirin; Z79.01 Long term (current) use of anticoagulants; Z79.84 Long term (current) use of oral hypoglycemic drugs; Z88.3 Allergy status to other anti-infective agents; Z88.5 Allergy status to narcotic agent; Z88.0 Allergy status to penicillin; Z88.8 Allergy status to other drugs, medicaments and biological substances; Z88.1 Allergy status to other antibiotic agents; Z98.1 Arthrodesis status; Z68.30 Body mass index [BMI] 30.0-30.9, adult
CPT/HCPCS: 71046; 80048; 80053; 80061; 82962; 83036; 84484; 85025; 85027; 85730; 86803; 93005; 93458; 99285; C1894; G0378; Q9967

== ENCOUNTER → 2024-03-06 10:37 | Outpatient (REF) | payer MEDICARE, OTHER, SELFPAY | LOC: HWRCS 10:37 | PROVIDERS: ATTENDING PHYSICIAN Nurse Practitioner; FAMILY PHYSICIAN Family Medicine | DX: I25.10 Atherosclerotic heart disease of native coronary artery without angina pectoris (principal); R06.09 Other forms of dyspnea | CPT/HCPCS: 93306 ==

== ENCOUNTER → 2024-04-09 07:25 | Outpatient (REF) | payer MEDICARE, OTHER, SELFPAY | LOC: HWRAD 07:25 | PROVIDERS: ATTENDING PHYSICIAN Physician Assistant Medical | DX: J98.9 Respiratory disorder, unspecified (principal) | CPT/HCPCS: 71046 ==

== ENCOUNTER → 2024-04-16 06:21 | Outpatient (REF) | payer MEDICARE, OTHER, SELFPAY ==
[2024-04-16 09:38] LABS: ALT (SGPT) 27 U/L (0-35); AST (SGOT) 30 U/L (14-36); Alkaline Phosphatase 69 U/L (38-126); Blood Urea Nitrogen 18 mg/dl (7-17); Calcium 9.3 mg/dl (8.4-10.2); Carbon Dioxide 30 mmol/L (22-30); Chloride 104 mmol/L (98-107); Creatine Phosphokinase 54 U/L (30-135); Direct Bilirubin 0.1 mg/dl (0.0-0.4); GGTP 13 U/L (12-43); Glucose 127 mg/dl (70-99); HDL Cholesterol 38 mg/dl; LDL Cholesterol, Calculated 31 mg/dl; Potassium 4.7 mmol/L (3.5-5.1); Sodium 142 mmol/L (135-145); Total Bilirubin 0.2 mg/dl (0.2-1.3); Total Cholesterol 91 mg/dl (50-199); Total Protein 6.2 g/dl (6.3-8.2); Triglyceride 113 mg/dl (10-149); Very Low Density Lipoprotein 22 mg/dl (0-30); eGFR > 60.00
[2024-04-16 09:40] LABS: % Basophils 0.4 % (0-2); % Eosinophils 3.2 % (0-6); % Immature Granulocytes 0.5 % (0-0.5); % Lymphocytes 30.9 % (20.5-51.1); Absolute Eosinophils 0.3 10^3/uL (0-0.7); Absolute Immature Granulocytes 0.1 10^3/uL (0-0.05); Absolute Lymphocytes 2.9 10^3/uL (1.2-3.4); Absolute Monocytes 0.5 10^3/uL (0.1-0.6); Absolute Neutrophils 5.7 10^3/uL (1.4-6.5); Hematocrit 40.1 % (37.0-47.0); Mean Corp Hgb Conc. 32.4 g/dL (33.0-37.0); Mean Corpuscular Hgb 30.4 pg (27.0-31.0); Mean Corpuscular Volume 93.9 fL (81.0-99.0); Nucleated Red Blood Cells % 0 %; Platelet Count 367 10^3/uL (130-400); Red Blood Cell Count 4.27 10^6/uL (4.20-5.40); Red Cell Dist. Width 13.8 % (11.5-14.5); White Blood Cell Count 9.4 10^3/uL (4.8-10.8)
[2024-04-16 10:27] LABS: Glycohemoglobin (HgbA1c) 6.4 % (4.0-5.6)
== END ==
LOC: HWLAB 06:21
PROVIDERS: ATTENDING PHYSICIAN Family Medicine
DX: E78.5 Hyperlipidemia, unspecified (principal); E11.69 Type 2 diabetes mellitus with other specified complication; I10 Essential (primary) hypertension
CPT/HCPCS: 36415; 80053; 80061; 82043; 82248; 82550; 82570; 82977; 83036; 85025

== ENCOUNTER 2024-08-05 18:32 | Inpatient (IN) | payer MEDICARE, OTHER, SELFPAY ==
[2024-08-05] VITALS (10 sets, daily range): BP systolic 88–185; BP diastolic 58–80; BMI 30.2; BMI 28.3
--- NOTE | 2024-08-05 15:04 | ED.GENMED ---
History of Present Illness
General
Chief Complaint: Breathing Problem
Time Seen by Provider: 08/05/24 14:50
History of Present Illness
History of Present Illness:
74-year-old female with history of CAD, diabetes, history of A-fib on Eliquis presenting for shortness of breath. Patient reports about a week or so ago she started to have cough and congestion. She thought that she had the flu, was treating
herself with OTC medications. Within the past several days, symptoms have been worsening, increased difficulty breathing. She has a pulse oximeter at home and oxygen was in the high 70s. Denies history of COPD or asthma. Denies any present chest
pain. Does note persistent productive cough. Denies abdominal pain or GI symptoms. Denies known sick contacts. Denies fever. Denies additional acute medical complaint
Past History
Past History
ED Past Medical History: Arrthythmia (afib), CAD, HTN, NIDDM, [place] and Other (Spinal stenosis)
ED Past Surgical History: Gynecological (Hysterectomy), Orthopedic and Other (Hernia repair X2)
Social History
Tobacco: Former smoker
Alcohol: None
Drug: None
Personal:
Living: with family
Family History
Family History: Other (Father with spinal cancer, is breast cancer and diabetes in the family)
Phy Exam
Physical Exam
Physical Exam:
General: Well-appearing, no clinical signs of dehydration, nontoxic and in no acute distress
HEENT: protecting airway
Neck: appears supple
CV: Normal heart rate, regular rhythm\\
Resp: Tachypnea with rhonchorous breath sounds bilaterally
Abd: Soft and non-distended, no tenderness to palpation, normal bowel sounds
Extremities: No deformities, no swelling, no erythema, pulses and sensation intact
Neuro: alert, no focal neurologic deficit
: deferred
Rectal: deferred
Psych: Normal affect
Skin: Intact
Scores
Heart Failure Risk
Heart Failure Risk Score: Not Applicable
Course
Orders/Labs/Results
Orders:
Orders
08/05/24 14:44
Electrocardiogram (*1) Urgent
Reason for Study: Shortness of Breath
EKG- Treatment ONCE
08/05/24 14:59
Electrocardiogram (*1) Stat
Reason for Study: Other
Other Reason for Exam: chest pain
EKG- Treatment ONCE
CR Chest - 2 Views Urgent
Comment:
Reason For Exam: SOB, hypoxia
08/05/24 Dinner
Cholesterol Lowering
Cholesterol Lowering: Sodium, 2 Gram
1800 amos/15 CHO Diabetic
08/05/24 15:15
COVID-19 Antigen Urgent
Source: Nasal Swab
Complete Blood Count/With Diff Urgent
Comprehensive Metabolic Panel Urgent
Troponin I Urgent
Influenza A+B Rapid Molecular Urgent
KALYANI Source: Nasal Swab
Specimen Description:
08/05/24 17:24
0.9% Sodium Chloride 1000 ml [Nss] 1,000 ml IV BOLUS
08/05/24 18:17
Admit/Transfer Patient As Directed
Co-Sign Provider:
Level of Care: Inpatient admission
Assign to:: Telemetry
Physician / Group: Dr. Dougherty
Diagnosis: Pneumonia and influenza
Reason for Telemetry: Arrhythmia
Date to Stop Telemetry: 08/08/24
Time to Stop Telemetry: 11:00
Reason for Hospitalization: Pneumonia and influenza.
Expected length of stay greater than two midnights?: Yes
ELOS- Estimated Length of Stay in days: 2
I certify the patient meets the requirements for IP care: Yes
PRN Pain Medication Management As Directed
May give lesser potent ordered pain med per pt: Yes
preference::
Protocol:: Medication orders for pain may be administered in a
manner that supports deferring to patient preference
when the pt is:
- Requesting an ordered lesser potent pain medication.
Least to most potent pain medications are defined
as: acetaminophen < NSAID < tramadol < opioids
(morphine, oxycodone, hydromorphone).
- Requesting a lesser dose of the same medication IF
ORDERED.
- Requesting a less intrusive route of administration
if both routes are prescribed by the provider (PO <
IV).
08/05/24 18:18
Code Status As Directed
Resuscitation Status: Full Code
08/05/24 18:23
Legionella Urinary Antigen Routine
KALYANI Source: Urine
Specimen Description:
Sputum Culture [Respiratory Culture/Gram Stain] Routine
KALYANI Source: Sputum
Specimen Description:
Date Specimen was Collected: 08/05/24
Time Specimen was Collected: 18:59
Strep pneumoniae Antigen Routine
KALYANI Source: Urine
Specimen Description:
LevoFLOXacin 750 MG/150 ML [Levaquin] 750 mg in 150 ml IV NOW
Oseltamivir Phosphate [Tamiflu] 75 mg PO NOW STA
08/05/24 18:36
Lactic Acid Stat
Procalcitonin Urgent
PCT Algorithmm Indication: Respiratory
Blood Culture Q30M
KALYANI Source: Blood/Venous
Specimen Description:
08/05/24 18:53
Acetaminophen [Tylenol] 650 mg PO Q4HPRN PRN
08/05/24 19:18
Blood Culture Q30M
KALYANI Source: Blood/Venous
Specimen Description:
08/05/24 20:18
0.9% Sodium Chloride 1000 ml [Nss] 1,000 ml IV 85 mls/hr
Apixaban [Eliquis] 5 mg PO BID
Atorvastatin [Lipitor] 40 mg PO QPM
Bisacodyl [Dulcolax] 10 mg RECTAL [id number] PRN
Carvedilol [Coreg] 6.25 mg PO BID
Docusate W/Senna [Senokot-S] 1 tablet PO BIDPRN PRN
Ipratropium/Albuterol Sulfate [Duoneb] 3 ml INH R QID
Polyethylene Glycol Powder [Miralax] 17 grams PO DAILYPRN PRN
08/05/24 20:18
Activity As Directed
Activity Level: Out of Bed-Early Mobility
Vital Signs As Directed
Frequency: Per unit guidelines
O2 Therapy [RESP] Routine
Titrate/Wean O2 to maintain O2 sat greater than (%): 94
08/05/24 22:00
Aspirin Chewable [Low Strength Aspirin] 81 mg PO HS
08/06/24 06:00
Basic Metabolic Panel IN AM
Complete Blood Count/With Diff IN AM
08/06/24 08:00
Dapagliflozin [Farxiga] 10 mg PO DAILY
ISOSORBIDE MONOnitrate ER [Imdur (Extended Release)] 30 mg PO DAILY
08/06/24 09:00
Oseltamivir Phosphate [Tamiflu] 75 mg PO BID
08/06/24 20:00
LevoFLOXacin 750 MG/150 ML [Levaquin] 750 mg in 150 ml IV Q24H
08/08/24 11:00
DC Protocol for Telemetry ONCE
Abnormal Lab Results
08/05/24
15:15
MCHC 32.7 L g/dL
(33.0-37.0)
Immature Gran % 0.6 H %
(0-0.5)
Carbon Dioxide 33 H mmol/L
(22-30)
Creatinine 0.5 L mg/dL
(0.6-1.0)
Glucose 122 H mg/dl
(70-99)
Total Protein 6.1 L g/dl
(6.3-8.2)
08/05/24 15:15
08/05/24 15:15
Vital Signs
Initial and Last Documented VS:
Initial Vital Signs
Temp Pulse Resp BP Pulse Ox
98.3 F 68 20 149/80 87
08/05/24 14:44 08/05/24 14:44 08/05/24 14:44 08/05/24 14:44 08/05/24 14:44
Last Documented Vital Signs
Temp Pulse Resp BP Pulse Ox
98.1 F 65 16 154/79 98
08/05/24 20:00 08/05/24 20:00 08/05/24 20:00 08/05/24 20:00 08/05/24 20:00
MDM/Problems Addressed
MDM/Problems Addressed:
74-year-old female with history of diabetes, CAD, A-fib on Eliquis presenting for difficulty breathing and cough. Vital signs on arrival significant for hypoxia.
On exam, patient placed on supplemental O2, improvement of saturations, however is having increased work of breathing, with diffuse rhonchorous respirations. Primary concern for acute pneumonia. Lower suspicion for PE given anticoagulation status.
No present tachycardia. Plan for laboratory analysis, viral swabs, chest x-ray imaging.
17:00 -patient's labs without acute abnormality. Chest x-ray shows potential infiltrate, however patient is flu positive, suspected viral pneumonia. Plan for admission given presenting hypoxia for continued respiratory monitoring and supportive
therapy
*Critical Care Note
Total Time (30-74mins, 75-104mins- exclusive of procedures): Not Applicable
ED Attending Note
-
Portions of this chart may have been created with voice recognition software.� Occasional wrong word or��sound alike� substitutions may have occurred due to the inherent limitations of voice recognition software.
Discharge Plan
Departure
Patient Disposition: Admit
Date of Disposition: 08/05/24
Time of Disposition: 17:27
Presentation/result/management discussed w/ accepting MD/DO: Hospitalist
Patient with high blood pressure during this ER visit?: No
Condition: Fair
Discharge Problem:
Influenza A, Hypoxia, Viral pneumonia
Interventions
Interventions:
*Risk Screen - Suicide Last Done: 08/05/24 15:15
*General Assessment Last Done: 08/05/24 15:15
*Neglect/Abuse Screening Last Done: 08/05/24 15:15
*ED- Fall Risk Assessment Last Done: 08/05/24 15:15
*ED COVID-19 Vaccine History Last Done: 08/05/24 15:15
*Nursing Disposition Last Done: 08/05/24 19:50
ED- Cardiac Assessment Last Done: 08/05/24 15:15
ED- Pulmonary Assessment Last Done: 08/05/24 15:15
Discharge Date and Time
Discharge Date/Time: 08/05/24 19:50
[2024-08-05 15:52] LABS: ALT (SGPT) 30 U/L (0-35); AST (SGOT) 31 U/L (14-36); Albumin 3.9 g/dl (3.5-5.0); Alkaline Phosphatase 78 U/L (38-126); Blood Urea Nitrogen 9 mg/dl (7-17); Calcium 9.2 mg/dl (8.4-10.2); Carbon Dioxide 33 mmol/L (22-30); Chloride 100 mmol/L (98-107); Estimated Creatinine Clearance 89 ml/min; Glucose 122 mg/dl (70-99); Potassium 3.7 mmol/L (3.5-5.1); Sodium 139 mmol/L (135-145); Total Bilirubin 0.7 mg/dl (0.2-1.3); Total Protein 6.1 g/dl (6.3-8.2); eGFR > 60.00
[2024-08-05 15:54] LABS: Hematocrit 38.8 % (37.0-47.0); Hemoglobin 12.7 g/dL (12.0-16.0); Mean Corp Hgb Conc. 32.7 g/dL (33.0-37.0); Mean Corpuscular Hgb 29.4 pg (27.0-31.0); Mean Corpuscular Volume 89.8 fL (81.0-99.0); Mean Platelet Volume 9.3 fL (7.4-10.4); Platelet Count 258 10^3/uL (130-400); Red Blood Cell Count 4.32 10^6/uL (4.20-5.40); Red Cell Dist. Width 14.5 % (11.5-14.5)
[2024-08-05 16:03] LABS: Troponin I < 0.012 ng/ml
[2024-08-05 16:19] LABS: COVID-19 Antigen Negative (Negative)
[2024-08-05 16:21] LABS: % Basophils 0.4 % (0-2); % Immature Granulocytes 0.6 % (0-0.5); % Lymphocytes 45.2 % (20.5-51.1); % Monocytes 8.3 % (1.7-9.3); % Neutrophils 43.5 % (42.2-75.2); Absolute Eosinophils 0.1 10^3/uL (0-0.7); Absolute Lymphocytes 2.3 10^3/uL (1.2-3.4); Absolute Monocytes 0.4 10^3/uL (0.1-0.6); Absolute Neutrophils 2.2 10^3/uL (1.4-6.5); Nucleated Red Blood Cells % 0 %
--- NOTE | 2024-08-05 17:48 | HPS.HSE ---
Family Physician
-
Family Physician: Manuel Galvan
Chief Complaint
-
Cough and shortness of breath
History of Present Illness
Patient is 74 years old female history of hypertension, diabetes mellitus, CAD, A-fib, presented to the hospital with cough and shortness of breath. Patient had symptoms of generalized malaise, myalgias, cough associated with shortness of breath
for actually a few weeks. She does have cough with with yellow and brownish sputum production. Patient denies fevers or chills but she has some subjective fevers. Her pulse ox was in the 70s at home several times this week. Denies any chest
pain. Denies nausea vomiting or diarrhea. In the ER she was noted to have influenza positive and she also had a chest x-ray with right suprahilar density concerning for pneumonia. In the ER she was noted also to be hypotensive and she was given a
liter bolus normal saline as well but by the time of my evaluation patient blood pressure was stable and she was referred to hospitalist service for further evaluation.
Medical History
Past Medical History
Past Medical History: Reports Other
Additional Past Medical History:
ASCVD / Prior GA
Hypertension
DM-II
Cervical DDD
Chronic Vertigo
Past Surgical History: Reports Other
Additional Past Surgical History:
Left Wrist Surgery
Incisional Hernia Repair
NANCY
Cervical Laminectomy and Fusion
Pelvic Floor Reconstruction
Cardiac Cath / No Stent (100% R PDA, 50% mid LAD) - 2016
Social History
Tobacco: Former Smoker (Quit smoking 7 years ago. > 40 pack years total use.)
Alcohol: None
Drug: None
Family History
Family History: Not pertinent
Allergies / Home Medications
Allergies reflects when Allergies were last updated in [facility].
Home Medications with original date entered in [facility]
Allergy/Medication List:
Allergies
Allergy/AdvReac Type Severity Reaction Status Date / Time
codeine [Codeine] Allergy Nausea Verified 08/05/24 14:48
diazepam [From Valium] Allergy very low BP Verified 08/05/24 14:48
morphine Allergy Nausea Verified 08/05/24 14:48
nitrofurantoin Allergy Unknown Verified 08/05/24 14:48
Penicillins Allergy Unknown Verified 08/05/24 14:48
pollen extracts Allergy HAYFEVER-SN Verified 08/05/24 14:48
EEZING/PAUL
ESTION
Home Medications
atorvastatin 40 mg tablet 40 mg PO QPM #30 tabs 04/03/19
apixaban 5 mg tablet (Eliquis) 5 mg PO BID Blood clot prevention/tx 06/01/20
aspirin 81 mg chewable tablet 81 mg PO HS Blood clot prevention/tx 06/01/20
carvedilol 6.25 mg tablet 6.25 mg PO BID ##60 06/01/20
empagliflozin 10 mg tablet (Jardiance) 10 mg PO DAILY Diabetes 05/06/22
isosorbide mononitrate 30 mg tablet,extended release 24 hr 30 mg PO DAILY Heart Disease/Condition 05/06/22
lutein 20 mg tablet 20 mg PO DAILY Supplement 05/06/22
meclizine 25 mg tablet 25 mg PO PRN PRN vertigo 05/06/22
melatonin 10 mg chewable tablet 20 mg PO PRN PRN sleep 05/06/22
metformin 1,000 mg tablet 1,000 mg PO QPM Diabetes 05/06/22
Review of Systems
-
A 12 point ROS was completed and negative except as noted: Yes
Physical Exam
Vital Signs
Vital Signs
Temp Pulse Resp BP Pulse Ox
98.3 F 58 19 88/72 95
08/05/24 14:44 08/05/24 17:00 08/05/24 17:00 08/05/24 17:00 08/05/24 17:00
Physical exam:
General: Acutely ill. Nontoxic appearance though
HEENT: Normocephalic, Atraumatic and dry Mucous Membranes
Respiratory: Bilateral coarse rhonchi; Negative Wheezes, Rales
Cardiac: Regular Rhythm and S1/S2
GI: Soft, Nontender and Nondistended
Musculoskeletal: No Clubbing, No Cyanosis and No Edema
Neuro: Awake, Alert and Oriented
Psych: Calm
Physical Exam
General: Other
Laboratory Results
-
08/05/24 15:15
08/05/24 15:15
Laboratory Results
Total Bilirubin 0.7 mg/dl (0.2-1.3) 08/05/24 15:15
AST 31 U/L (14-36) 08/05/24 15:15
ALT 30 U/L (0-35) 08/05/24 15:15
Alkaline Phosphatase 78 U/L (38-126) 08/05/24 15:15
Troponin I < 0.012 ng/ml 08/05/24 15:15
Data Reviewed
-
Diagnostic Radiology: Image Personally Visualized and interpreted
Lab Data: Labs Reviewed by me
Impression/Plan
-
IMPRESSION:
Patient is 74 years old female with multiple comorbidities came into the hospital cough and shortness of breath and found to have influenza A and pneumonia. Patient with increased risk morbidity mortality therefore she will need to be treated in
the hospital and monitor accordingly
PLAN:
Acute respiratory insufficiency:
Oxygen supplementation as needed
Antiviral
Antibiotics
COVID-19 negative
Check blood cultures as well
Influenza A:
Although out of the time window and she would benefit the most, it does not mean that she would not benefit at all so will give antiviral given her severity of acute illness
Bacterial superimposed community-acquired pneumonia:
IV Levaquin
Possibility of a penicillin allergy
Sputum culture
Check strep and Legionella urine antigen
Procalcitonin ordered and pending
Check lactic acid as well
Hypotension:
Unclear if medications related or false reading. Less likely sepsis related but cannot rule out yet.
Check lactic acid and blood cultures
Monitor closely for now
Hypertension:
Continue antihypertensives with holding parameters
Monitor blood pressure and adjust medications accordingly
Hyperlipidemia:
Continue statins
Diabetes mellitus type 2:
Diabetic diet
Insulin sliding scale
Hold metformin due to acute illness
Monitor blood sugars and adjust medications accordingly
CAD:
Last cardiac cath last year in January showed mild nonobstructive CAD and occlusion of the RPDA patent at the site.
Continue antiplatelets and statin
Chest pain-free
Troponin less than 0.012
Resume beta-blockers in a.m.
Cardiac monitoring
Paroxysmal atrial fibrillation:
Continue anticoagulation with Eliquis
Continue rate control agents with carvedilol with holding parameters
DVT prophylaxis:
Eliquis
CODE STATUS:
Full code
Time spent 75 minutes
--- NOTE | 2024-08-05 18:05 | EDRN ---
Dr. Dougherty in to see pt at this time.
[2024-08-05 18:56] LABS: Lactic Acid 0.6 mmol/L (0.7-2.0)
[2024-08-05 19:12] LABS: Procalcitonin < 0.05 ng/ml (0.0-0.25)
[2024-08-05] MEDS: LEVAQUIN 150 IV (19:19)
[2024-08-05] MEDS: NSS 1000 IV ×2 (19:19→20:44)
[2024-08-05] MEDS: TYLENOL 650 MG PO (19:20)
[2024-08-05] MEDS: TAMIFLU 75 MG PO (19:20)
--- NOTE | 2024-08-05 19:34 | EDRN ---
Report received, introduced myself to patient and medicated for a headache, also gave patient a lunchbox and sent her paperwork to the floor
[2024-08-05] MEDS: DUONEB 3 ML INH (20:38)
[2024-08-05] MEDS: ELIQUIS 5 MG PO (20:44)
[2024-08-05] MEDS: LIPITOR 40 MG PO (20:44)
[2024-08-05] MEDS: LOW STRENGTH ASPIRIN 81 MG PO (20:44)
[2024-08-05] MEDS: COREG 6.25 MG PO (20:47)
[2024-08-05 21:47] LABS: Glucose - Point of Care 153 mg/dl (70-99)
[2024-08-06] VITALS (7 sets, daily range): BP systolic 128–146; BP diastolic 56–71; PULSE 59; O2SAT 90
[2024-08-06] MEDS: NSS 1000 IV (05:34)
[2024-08-06 07:26] LABS: % Basophils 0.3 % (0-2); % Eosinophils 1.4 % (0-6); % Immature Granulocytes 0.4 % (0-0.5); % Lymphocytes 24.1 % (20.5-51.1); % Monocytes 7.3 % (1.7-9.3); % Neutrophils 66.5 % (42.2-75.2); Absolute Eosinophils 0.1 10^3/uL (0-0.7); Absolute Lymphocytes 1.7 10^3/uL (1.2-3.4); Absolute Monocytes 0.5 10^3/uL (0.1-0.6); Absolute Neutrophils 4.7 10^3/uL (1.4-6.5); Hemoglobin 11.7 g/dL (12.0-16.0); Mean Corp Hgb Conc. 32.5 g/dL (33.0-37.0); Mean Corpuscular Hgb 29.5 pg (27.0-31.0); Mean Corpuscular Volume 90.9 fL (81.0-99.0); Mean Platelet Volume 9.2 fL (7.4-10.4); Nucleated Red Blood Cells % 0 %; Platelet Count 239 10^3/uL (130-400); Red Blood Cell Count 3.96 10^6/uL (4.20-5.40); Red Cell Dist. Width 14.4 % (11.5-14.5)
[2024-08-06 07:58] LABS: Blood Urea Nitrogen 7 mg/dl (7-17); Carbon Dioxide 30 mmol/L (22-30); Chloride 103 mmol/L (98-107); Estimated Creatinine Clearance 87 ml/min; Glucose 109 mg/dl (70-99); Potassium 3.8 mmol/L (3.5-5.1); Sodium 140 mmol/L (135-145); eGFR > 60.00
[2024-08-06] MEDS: DUONEB 3 ML INH ×4 (08:10→19:03)
--- NOTE | 2024-08-06 08:25 | W.PN.HOSP.TC ---
Today's Communication/Plan
-
IV antibiotics. Antiviral. Lasix
Assessment / Plan
Assessment / Plan
Physical exam:
General: Well Developed, Well Nourished and No Apparent Distress
HEENT: Normocephalic, Atraumatic and Moist Mucous Membranes
Respiratory: Bilateral coarse rhonchi; Negative Wheezes, few crackles in the bases.
Cardiac: Regular Rhythm and S1/S2
GI: Soft, Nontender and Nondistended
Musculoskeletal: No Clubbing, No Cyanosis and some Edema
Neuro: Awake, Alert and Oriented, no neurodeficits
Psych: Calm
A/P:
Acute respiratory insufficiency:
Oxygen supplementation as needed
Antiviral
Antibiotics
COVID-19 negative
Follow-up blood cultures but negative so far
Incentive spirometer
PT eval
Influenza A:
Continue Tamiflu
Probable bacterial superimposed community-acquired pneumonia:
IV Levaquin and will switch to oral tomorrow
Possibility of a penicillin allergy
Sputum culture
Check strep and Legionella urine antigen
Procalcitonin not impressive
Check lactic acid and okay
Mild volume overload/acute diastolic congestive heart failure:
Lasix low-dose today IV x 1.
Diuretics as needed
Already on beta-blockers and SGTL inhibitor
Will update echocardiogram
Hypotension:
Improved
Unclear if medications related or false reading. No sepsis.
Checked lactic acid and blood cultures
Monitor
Hypertension:
Continue antihypertensives with holding parameters
Monitor blood pressure and adjust medications accordingly
Hyperlipidemia:
Continue statins
Diabetes mellitus type 2:
Diabetic diet
Insulin sliding scale
Hold metformin due to acute illness
Monitor blood sugars and adjust medications accordingly
CAD:
Last cardiac cath last year in January showed mild nonobstructive CAD and occlusion of the RPDA patent at the site.
Continue antiplatelets and statin
Chest pain-free
Troponin less than 0.012
Resume beta-blockers in a.m.
Cardiac monitoring
Paroxysmal atrial fibrillation:
Continue anticoagulation with Eliquis
Continue rate control agents with carvedilol with holding parameters
DVT prophylaxis:
Eliquis
CODE STATUS:
Full code
Total time spent on today's encounter was 52 minutes which included time spent in counseling the patient/family regarding diagnosis and treatment plan as listed above, goals of care, and symptom management. Case was discussed with nursing staff,
specialists, and care coordinators/case management. All labs and imaging personally reviewed by me. Remainder the time spent in detailed review of previous records, lab data, imaging, and other medical provider documentation.
Anticipated Discharge: 24 - 48 hours
Subjective/Interval History
-
Date of Service: August 06, 2024
Patient overall feels better. She feels cannot expectorate much today. She also feels 'puffy'. Afebrile
Objective Data
-
Labs:
Laboratory Results
08/06/24
06:59
WBC 7.0
Hgb 11.7 L
Hct 36.0 L
Plt Count 239
Sodium 140
Potassium 3.8
Chloride 103
Carbon Dioxide 30
BUN 7
Creatinine 0.6
Glucose 109 H
Calcium 9.0
Vital Signs:
Vital Signs
Temp Pulse Resp BP Pulse Ox
97.8 F 75 16 146/61 96
08/06/24 08:00 08/06/24 08:12 08/06/24 08:12 08/06/24 08:00 08/06/24 08:12
I&O
08/05/24 08/06/24 08/07/24
06:59 06:59 06:59
Intake Total 1090 / 1090
Balance 1090 / 1090
[2024-08-06] MEDS: FARXIGA 10 MG PO (09:41)
[2024-08-06] MEDS: TAMIFLU 75 MG PO ×2 (09:41→19:55)
[2024-08-06] MEDS: ELIQUIS 5 MG PO ×2 (09:41→19:55)
[2024-08-06] MEDS: COREG 6.25 MG PO ×2 (09:41→19:55)
[2024-08-06] MEDS: IMDUR (EXTENDED RELEASE) 30 MG PO (09:41)
[2024-08-06] MEDS: LASIX 20 MG IV (12:34)
[2024-08-06] MEDS: MUCINEX 600 MG PO ×2 (12:34→19:55)
--- NOTE | 2024-08-06 15:56 | CM ---
Met with pt at bedside
Initial assessment completed
Pt lives in a 1 story home with her son; 1 step to enter, FF setup
Independent at baseline, drives
DME - none
SNF/HH - denies past hx
Has ride at d/c
PCP - Manuel Doe
Pharm - [facility]
PT - HH vs no needs - has no preference if HH needed
Plan - watch for oxygen needs at d/c; HH vs no needs
[2024-08-06] MEDS: LIPITOR 40 MG PO (16:37)
[2024-08-06] MEDS: LOW STRENGTH ASPIRIN 81 MG PO (19:55)
[2024-08-06] MEDS: LEVAQUIN 150 IV (19:55)
[2024-08-07 03:45] VITALS: BP 137/71
[2024-08-07] MEDS: DUONEB 3 ML INH ×4 (07:09→20:03)
[2024-08-07 07:39] VITALS: BP 133/68
[2024-08-07 07:52] LABS: Blood Urea Nitrogen 9 mg/dl (7-17); Calcium 9.8 mg/dl (8.4-10.2); Carbon Dioxide 35 mmol/L (22-30); Chloride 102 mmol/L (98-107); Estimated Creatinine Clearance 75 ml/min; Glucose 127 mg/dl (70-99); Potassium 3.8 mmol/L (3.5-5.1); Sodium 140 mmol/L (135-145); eGFR > 60.00
--- NOTE | 2024-08-07 08:33 | W.PN.HOSP.TC ---
Today's Communication/Plan
-
IV antibiotics. Steroids. Repeat chest x-ray
Assessment / Plan
Assessment / Plan
Physical exam:
General: Well Developed, Well Nourished and No Apparent Distress
HEENT: Normocephalic, Atraumatic and Moist Mucous Membranes
Respiratory: Bilateral coarse rhonchi; Negative Wheezes, few crackles in the bases.
Cardiac: Regular Rhythm and S1/S2
GI: Soft, Nontender and Nondistended
Musculoskeletal: No Clubbing, No Cyanosis and some Edema
Neuro: Awake, Alert and Oriented, no neurodeficits
Psych: Calm
A/P:
Acute respiratory insufficiency:
Oxygen supplementation as needed although currently off oxygen
Will start her on oral steroids today
We will repeat a chest x-ray today PA and lateral
Continue Mucinex
Antiviral
Antibiotics
COVID-19 negative
Follow-up blood cultures but negative so far
Incentive spirometer
PT eval
Influenza A:
Continue Tamiflu
Probable bacterial superimposed community-acquired pneumonia:
IV Levaquin and will switch to oral tomorrow
Possibility of a penicillin allergy but when further questioning, apparently she had some vaginal infection so this is not a true allergy.
Sputum culture
Check strep and Legionella urine antigen and they are both negative
Procalcitonin not impressive
Check lactic acid and okay
Blood cultures no growth
Mild volume overload/acute diastolic congestive heart failure:
Lasix low-dose yesterday IV x 1.
Diuretics as needed
Already on beta-blockers and SGTL inhibitor
Updated echocardiogram
Hypotension:
Improved
Unclear if medications related or false reading. No sepsis.
Checked lactic acid and blood cultures
Monitor
Hypertension:
Continue antihypertensives with holding parameters
Monitor blood pressure and adjust medications accordingly
Hyperlipidemia:
Continue statins
Diabetes mellitus type 2:
Diabetic diet
Insulin sliding scale
Hold metformin due to acute illness
Monitor blood sugars and adjust medications accordingly
CAD:
Last cardiac cath last year in January showed mild nonobstructive CAD and occlusion of the RPDA patent at the site.
Continue antiplatelets and statin
Chest pain-free
Troponin less than 0.012
Resume beta-blockers in a.m.
Cardiac monitoring
Paroxysmal atrial fibrillation:
Continue anticoagulation with Eliquis
Continue rate control agents with carvedilol with holding parameters
DVT prophylaxis:
Eliquis
CODE STATUS:
Full code
Total time spent on today's encounter was 52 minutes which included time spent in counseling the patient/family regarding diagnosis and treatment plan as listed above, goals of care, and symptom management. Case was discussed with nursing staff,
specialists, and care coordinators/case management. All labs and imaging personally reviewed by me. Remainder the time spent in detailed review of previous records, lab data, imaging, and other medical provider documentation.
Anticipated Discharge: 24 - 48 hours
Subjective/Interval History
-
Date of Service: August 07, 2024
She feels overall better but had some wheezing with chest tightness. Afebrile
Objective Data
-
Labs:
Laboratory Results
08/07/24
07:10
Sodium 140
Potassium 3.8
Chloride 102
Carbon Dioxide 35 H
BUN 9
Creatinine 0.7
Glucose 127 H
Calcium 9.8
Vital Signs:
Vital Signs
Temp Pulse Resp BP Pulse Ox
97.9 F 66 24 133/68 92
08/07/24 07:39 08/07/24 07:39 08/07/24 07:39 08/07/24 07:39 08/07/24 07:47
I&O
03/11/25 03/12/25 03/13/25
06:59 06:59 06:59
Intake Total 1090 / 1090 960 / 960
Output Total 1874
Balance 1090 / 1090 -915 / -915
[2024-08-07] MEDS: MUCINEX 600 MG PO ×2 (09:42→19:42)
[2024-08-07] MEDS: IMDUR (EXTENDED RELEASE) 30 MG PO (09:42)
[2024-08-07] MEDS: TAMIFLU 75 MG PO ×2 (09:42→19:41)
[2024-08-07] MEDS: COREG 6.25 MG PO ×2 (09:42→19:42)
[2024-08-07] MEDS: ELIQUIS 5 MG PO ×2 (09:42→19:41)
[2024-08-07] MEDS: FARXIGA 10 MG PO (09:42)
[2024-08-07] MEDS: DELTASONE 40 MG PO (10:45)
[2024-08-07 10:55] VITALS: BP 123/63
[2024-08-07 14:29] VITALS: BP 116/63
[2024-08-07] MEDS: LIPITOR 40 MG PO (18:14)
[2024-08-07] MEDS: TYLENOL 650 MG PO (18:16)
[2024-08-07 19:30] VITALS: BP 141/75
[2024-08-07] MEDS: LEVAQUIN 150 IV (19:42)
[2024-08-07] MEDS: LOW STRENGTH ASPIRIN 81 MG PO (21:58)
[2024-08-07 23:35] VITALS: BP 126/68
[2024-08-08] VITALS (7 sets, daily range): BP systolic 119–145; BP diastolic 68–81; PULSE 78; O2SAT 91
[2024-08-08] MEDS: DUONEB 3 ML INH ×4 (07:22→20:26)
[2024-08-08] MEDS: FARXIGA 10 MG PO (07:53)
[2024-08-08] MEDS: COREG 6.25 MG PO ×2 (07:53→21:18)
[2024-08-08] MEDS: DELTASONE 40 MG PO (07:53)
[2024-08-08] MEDS: TAMIFLU 75 MG PO ×2 (07:53→21:18)
[2024-08-08] MEDS: MUCINEX 600 MG PO ×2 (07:53→21:18)
[2024-08-08] MEDS: ELIQUIS 5 MG PO ×2 (07:53→21:18)
[2024-08-08] MEDS: IMDUR (EXTENDED RELEASE) 30 MG PO (07:53)
--- NOTE | 2024-08-08 08:34 | W.PN.HOSP.TC ---
Today's Communication/Plan
-
Continue antibiotics and steroids
Assessment / Plan
Assessment / Plan
Physical exam:
General: Well Developed, Well Nourished and No Apparent Distress
HEENT: Normocephalic, Atraumatic and Moist Mucous Membranes
Respiratory: Bilateral coarse rhonchi; Negative Wheezes, few crackles in the bases.
Cardiac: Regular Rhythm and S1/S2
GI: Soft, Nontender and Nondistended
Musculoskeletal: No Clubbing, No Cyanosis and some Edema
Neuro: Awake, Alert and Oriented, no neurodeficits
Psych: Calm
A/P:
Acute respiratory insufficiency:
Oxygen supplementation as needed although currently off oxygen
Continue oral steroids
Seen and evaluated repeated chest x-ray PA and lateral from yesterday
Continue Mucinex
Antiviral
Antibiotics
COVID-19 negative
Follow-up blood cultures but negative so far
Incentive spirometer
PT eval
Influenza A:
Continue Tamiflu
Probable bacterial superimposed community-acquired pneumonia:
IV Levaquin and will switch to oral tomorrow
Possibility of a penicillin allergy but when further questioning, apparently she had some vaginal infection so this is not a true allergy.
Sputum culture
Check strep and Legionella urine antigen and they are both negative
Procalcitonin not impressive
Check lactic acid and okay
Blood cultures no growth
Mild volume overload/acute diastolic congestive heart failure:
Lasix low-dose prior IV x 1.
Diuretics as needed
Already on beta-blockers and SGTL inhibitor
Updated echocardiogram
Hypotension:
Improved
Unclear if medications related or false reading. No sepsis.
Checked lactic acid and blood cultures
Monitor
Hypertension:
Continue antihypertensives with holding parameters
Monitor blood pressure and adjust medications accordingly
Hyperlipidemia:
Continue statins
Diabetes mellitus type 2:
Diabetic diet
Insulin sliding scale
Hold metformin due to acute illness
Monitor blood sugars and adjust medications accordingly
CAD:
Last cardiac cath last year in January showed mild nonobstructive CAD and occlusion of the RPDA patent at the site.
Continue antiplatelets and statin
Chest pain-free
Troponin less than 0.012
Resume beta-blockers in a.m.
Cardiac monitoring
Paroxysmal atrial fibrillation:
Continue anticoagulation with Eliquis
Continue rate control agents with carvedilol with holding parameters
DVT prophylaxis:
Eliquis
CODE STATUS:
Full code
Anticipated Discharge: Within 24 hours
Subjective/Interval History
-
Date of Service: August 08, 2024
Patient feels better overall but still has some cough and discomfort
Objective Data
-
Labs:
Laboratory Results
08/08/24
07:34
Sodium Pending
Potassium Pending
Chloride Pending
Carbon Dioxide Pending
BUN Pending
Creatinine Pending
Glucose Pending
Calcium Pending
Vital Signs:
Vital Signs
Temp Pulse Resp BP Pulse Ox
97.9 F 54 17 143/70 92
08/08/24 07:30 08/08/24 07:30 08/08/24 07:30 08/08/24 07:30 08/08/24 07:30
I&O
08/07/24 08/08/24 08/09/24
06:59 06:59 06:59
Intake Total 960 / 960 880 / 880
Output Total 1875 / 1875 1250 / 1250
Balance -915 / -915 -370 / -370
[2024-08-08 08:55] LABS: Blood Urea Nitrogen 11 mg/dl (7-17); Calcium 9.9 mg/dl (8.4-10.2); Carbon Dioxide 30 mmol/L (22-30); Chloride 104 mmol/L (98-107); Estimated Creatinine Clearance 75 ml/min; Glucose 120 mg/dl (70-99); Potassium 4.4 mmol/L (3.5-5.1); Sodium 141 mmol/L (135-145); eGFR > 60.00
[2024-08-08] MEDS: LIPITOR 40 MG PO (18:13)
[2024-08-08] MEDS: LEVAQUIN 150 IV (21:18)
[2024-08-08] MEDS: LOW STRENGTH ASPIRIN 81 MG PO (21:18)
[2024-08-09 07:47] VITALS: BP 132/74
[2024-08-09] MEDS: DUONEB 3 ML INH ×3 (08:08→14:31)
[2024-08-09] MEDS: FARXIGA 10 MG PO (08:14)
[2024-08-09] MEDS: COREG 6.25 MG PO (08:14)
[2024-08-09] MEDS: DELTASONE 40 MG PO (08:14)
[2024-08-09] MEDS: LEVAQUIN 750 MG PO (08:15)
[2024-08-09] MEDS: IMDUR (EXTENDED RELEASE) 30 MG PO (08:15)
[2024-08-09] MEDS: MUCINEX 600 MG PO (08:15)
[2024-08-09] MEDS: ELIQUIS 5 MG PO (08:15)
[2024-08-09] MEDS: TAMIFLU 75 MG PO (08:15)
--- NOTE | 2024-08-09 09:23 | W.PN.HOSP.TC ---
Today's Communication/Plan
-
Discharge planning today
Assessment / Plan
Assessment / Plan
Physical exam:
General: Well Developed, Well Nourished and No Apparent Distress
HEENT: Normocephalic, Atraumatic and Moist Mucous Membranes
Respiratory: Few rhonchi; Negative Wheezes, no crackles
Cardiac: Regular Rhythm and S1/S2
GI: Soft, Nontender and Nondistended
Musculoskeletal: No Clubbing, No Cyanosis and some Edema
Neuro: Awake, Alert and Oriented, no neurodeficits
Psych: Calm
A/P:
Acute respiratory insufficiency:
Oxygen supplementation as needed although currently off oxygen
Continue oral steroids
Seen and evaluated repeated chest x-ray PA and lateral from prior
Continue Mucinex
Antiviral
Antibiotics
COVID-19 negative
Follow-up blood cultures but negative so far
Incentive spirometer
PT eval
Plan to discharge today
Influenza A:
Continue Tamiflu
Probable bacterial superimposed community-acquired pneumonia:
IV Levaquin and will switch to oral tomorrow
Possibility of a penicillin allergy but when further questioning, apparently she had some vaginal infection so this is not a true allergy.
Sputum culture
Check strep and Legionella urine antigen and they are both negative
Procalcitonin not impressive
Check lactic acid and okay
Blood cultures no growth
Mild volume overload/acute diastolic congestive heart failure:
Lasix low-dose prior IV x 1.
Diuretics as needed
Already on beta-blockers and SGTL inhibitor
Updated echocardiogram and normal EF.
Hypotension:
Improved
Unclear if medications related or false reading. No sepsis.
Checked lactic acid and blood cultures
Monitor
Hypertension:
Continue antihypertensives with holding parameters
Monitor blood pressure and adjust medications accordingly
Hyperlipidemia:
Continue statins
Diabetes mellitus type 2:
Diabetic diet
Insulin sliding scale
Hold metformin due to acute illness
Monitor blood sugars and adjust medications accordingly
CAD:
Last cardiac cath last year in January showed mild nonobstructive CAD and occlusion of the RPDA patent at the site.
Continue antiplatelets and statin
Chest pain-free
Troponin less than 0.012
Resume beta-blockers in a.m.
Cardiac monitoring
Paroxysmal atrial fibrillation:
Continue anticoagulation with Eliquis
Continue rate control agents with carvedilol with holding parameters
DVT prophylaxis:
Eliquis
CODE STATUS:
Full code
Anticipated Discharge: Today
Subjective/Interval History
-
Date of Service: August 09, 2024
Patient feels better overall. Afebrile
Objective Data
-
Labs:
Laboratory Results
08/09/24
07:30
Sodium Pending
Potassium Pending
Chloride Pending
Carbon Dioxide Pending
BUN Pending
Creatinine Pending
Glucose Pending
Calcium Pending
Vital Signs:
Vital Signs
Temp Pulse Resp BP Pulse Ox
97.9 F 95 18 132/74 94
08/09/24 07:47 08/09/24 08:14 08/09/24 08:10 08/09/24 08:14 08/09/24 08:10
I&O
08/08/24 08/09/24 08/10/24
06:59 06:59 06:59
Intake Total 880 / 880 660 / 660
Output Total 1250 / 1250 1250 / 1250
Balance -370 / -370 -590 / -590
[2024-08-09 09:35] LABS: Blood Urea Nitrogen 21 mg/dl (7-17); Carbon Dioxide 30 mmol/L (22-30); Chloride 101 mmol/L (98-107); Estimated Creatinine Clearance 75 ml/min; Glucose 114 mg/dl (70-99); Potassium 4.9 mmol/L (3.5-5.1); Sodium 139 mmol/L (135-145); eGFR > 60.00
--- NOTE | 2024-08-09 12:33 | W.DCSUMMARY ---
Discharge Summary
Discharge Data
Date of Admission: 08/05/24
Date of Discharge: 08/09/24
-
Pending Results: No
Hospital Course
Patient 74 years old female history hypertension, diabetes mellitus, A-fib, CAD presented to the hospital cough and shortness of breath and found to have community-acquired right upper lobe pneumonia. She also had bronchospasm with airway reactive
disease likely due to pneumonia. She was given antibiotics and steroids and bronchodilators. Patient improved over rest of the hospital stay. She will be continued on a short oral course of antibiotics and also on a tapering course of oral
steroids. Might consider repeat images in about 2 months and pulmonary function test as outpatient afterwards. She also received mild diuresis and an echocardiogram showed normal EF and no changes from prior echo. Otherwise, patient
hemodynamically she has pulse ox normal on room air and afebrile. She will be discharged in stable condition today.
Discharge duration: 35 minutes
Discharge Plan
-
Patient Disposition: Home with Home Care
Discharge Diagnosis/Procedures: Acute respiratory insufficiency. Influenza A. Community-acquired pneumonia. Acute diastolic congestive heart failure from volume overload. Paroxysmal atrial fibrillation. History of coronary artery disease.
Hypertension. Diabetes mellitus.
Diet: Low Cholesterol, 2 Gram Sodium, Diabetic, Carb Controlled and Restrict fluids to 64 oz
Activity: As tolerated
Blood Work: Please PCP to order CBC, BMP within 1 week
Specialty Instructions: Weigh Daily- Call MD for wt gain/loss 3 lbs overnight/5 lbs in 1 week
Referrals:
Manuel Galvan, DO [Family Provider] - in less than 1 week
Prescriptions:
New
levofloxacin 750 mg Tablet
750 mg PO DAILY 5 Days Qty: 5 0RF
prednisone 10 mg Tablet
See Rx Instructions .ROUTE .COMPLEX Qty: 30 0RF
Rx Instructions:
Take By Mouth:
40 mg daily x3 days, 30 mg daily x3 days,
20 mg daily x3 days, 10 mg daily x3 days.
Continued
aspirin 81 MG tablet,chewable
81 mg PO HS
Eliquis 5 MG tablet
5 mg PO BID
Patient Comments:
stop 2 days pre-op
carvedilol 6.25 MG tablet
6.25 mg PO BID Qty: 60 1RF
isosorbide mononitrate 30 mg Tablet Extended Release 24 Hr
30 mg PO DAILY
meclizine 25 mg Tablet
25 mg PO PRN PRN (Reason: vertigo)
Patient Comments:
hasn't taken in awhile approx 4 mts ago for last dose
metformin 1,000 mg Tablet
1,000 mg PO QPM
lutein 20 mg Tablet
20 mg PO DAILY
Jardiance 10 mg Tablet
10 mg PO DAILY
melatonin 10 mg Tablet,Chewable
20 mg PO PRN PRN (Reason: sleep)
atorvastatin 40 MG tablet
40 mg PO QPM Qty: 30 0RF
Discharge Orders:
Discharge Patient (As Directed); Ordered 08/09/24
Ordered By: Guille Dougherty
Discharge Date and Time
Discharge Date/Time: 08/09/24 15:36
Print Language: UPPER SORBIAN
--- NOTE | 2024-08-09 13:57 | CM ---
CM reviewed medical records. Plan for discharge today. Patient declined home care.
PLAN: home with family.
[2024-08-09 14:53] VITALS: BP 143/67
== END 2024-08-09 15:36 | disposition home or self-care (01) | DRG 193 ==
LOC: 1 ACUTE 18:32
PROVIDERS: ADMITTING PHYSICIAN Hospitalist; EMERGENCY PHYSICIAN Student in an Organized Health Care Education/Training Program; FAMILY PHYSICIAN Family Medicine
DX: J10.08 Influenza due to other identified influenza virus with other specified pneumonia (principal); I50.31 Acute diastolic (congestive) heart failure; J15.9 Unspecified bacterial pneumonia; I48.0 Paroxysmal atrial fibrillation; I25.10 Atherosclerotic heart disease of native coronary artery without angina pectoris; E11.9 Type 2 diabetes mellitus without complications; E87.79 Other fluid overload; I95.9 Hypotension, unspecified; E78.5 Hyperlipidemia, unspecified; I10 Essential (primary) hypertension; R09.02 Hypoxemia; R06.89 Other abnormalities of breathing; J98.01 Acute bronchospasm; I25.2 Old myocardial infarction; Z11.52 Encounter for screening for COVID-19; Z20.822 Contact with and (suspected) exposure to COVID-19; Z87.891 Personal history of nicotine dependence; Z88.0 Allergy status to penicillin; Z88.5 Allergy status to narcotic agent; Z79.84 Long term (current) use of oral hypoglycemic drugs; Z79.82 Long term (current) use of aspirin; Z79.01 Long term (current) use of anticoagulants; Z79.899 Other long term (current) drug therapy
CPT/HCPCS: 71046; 80048; 80053; 82962; 83605; 83735; 84145; 84484; 85025; 87040; 87449; 87502; 87811; 87899; 93005; 93306; 94640; 97110; 97162; 99285

== ENCOUNTER → 2024-08-29 06:10 | Outpatient (REF) | payer MEDICARE, OTHER, SELFPAY ==
[2024-08-29 10:17] LABS: ALT (SGPT) 24 U/L (0-35); AST (SGOT) 24 U/L (14-36); Albumin 4.1 g/dl (3.5-5.0); Alkaline Phosphatase 68 U/L (38-126); Blood Urea Nitrogen 11 mg/dl (7-17); Calcium 9.3 mg/dl (8.4-10.2); Carbon Dioxide 28 mmol/L (22-30); Chloride 106 mmol/L (98-107); Glucose 113 mg/dl (70-99); HDL Cholesterol 30 mg/dl; LDL Cholesterol, Calculated 29 mg/dl; Potassium 4.3 mmol/L (3.5-5.1); Sodium 144 mmol/L (135-145); Total Bilirubin 0.6 mg/dl (0.2-1.3); Total Cholesterol 80 mg/dl (50-199); Total Protein 6.1 g/dl (6.3-8.2); Triglyceride 106 mg/dl (10-149); Very Low Density Lipoprotein 21 mg/dl (0-30); eGFR > 60.00
[2024-08-29 10:53] LABS: Glycohemoglobin (HgbA1c) 6.6 % (4.0-5.6)
[2024-08-29 11:25] LABS: Microalbumin, Random Urine 31.2 mg/dl (0.6-1.7)
== END ==
LOC: HWLAB 06:10
PROVIDERS: ATTENDING PHYSICIAN Family Medicine; FAMILY PHYSICIAN Physician Assistant Medical
DX: E11.69 Type 2 diabetes mellitus with other specified complication (principal); E78.5 Hyperlipidemia, unspecified; J18.9 Pneumonia, unspecified organism
CPT/HCPCS: 36415; 71046; 80053; 80061; 82043; 82570; 83036

== ENCOUNTER 2024-11-02 08:27 | Emergency (ER) | payer MEDICARE, OTHER, SELFPAY ==
[2024-11-02 08:38] VITALS: BP 132/67
[2024-11-02 08:54] LABS: % Basophils 0.5 % (0-2); % Eosinophils 2.7 % (0-6); % Immature Granulocytes 0.1 % (0-0.5); % Lymphocytes 24.4 % (20.5-51.1); % Monocytes 6.5 % (1.7-9.3); % Neutrophils 65.8 % (42.2-75.2); Absolute Eosinophils 0.2 10^3/uL (0-0.7); Absolute Lymphocytes 1.8 10^3/uL (1.2-3.4); Absolute Monocytes 0.5 10^3/uL (0.1-0.6); Hematocrit 40.4 % (37.0-47.0); Hemoglobin 12.9 g/dL (12.0-16.0); Mean Corp Hgb Conc. 31.9 g/dL (33.0-37.0); Mean Corpuscular Hgb 29.8 pg (27.0-31.0); Mean Corpuscular Volume 93.3 fL (81.0-99.0); Mean Platelet Volume 9.3 fL (7.4-10.4); Nucleated Red Blood Cells % 0 %; Platelet Count 312 10^3/uL (130-400); Red Blood Cell Count 4.33 10^6/uL (4.20-5.40); Red Cell Dist. Width 14.8 % (11.5-14.5); White Blood Cell Count 7.5 10^3/uL (4.8-10.8)
[2024-11-02 09:20] LABS: Troponin I < 0.012 ng/ml
[2024-11-02 09:26] VITALS: BP 123/73
--- NOTE | 2024-11-02 09:29 | ED.GENMED ---
History of Present Illness
General
Chief Complaint: Chest Pain
Source: patient
Time Seen by Provider: 11/02/24 09:19
History of Present Illness
History of Present Illness:
This patient is a 74-year-old female presents emergency department with complaints of left-sided chest pain that is been present 'off-and-on' all week long. She says she is just been ignoring it but felt like it would be a good idea to get it
checked out today. She describes the pain is mostly on the left side of her chest sometimes associated with 'tingling' in her lips and jaw also sometimes noted with a feeling like 'my arm kind of hurts'. She denies associated back pain, neck pain,
headache, numbness, weakness, vomiting, diaphoresis, abdominal pain, dyspnea, leg swelling. Today she felt a little anxious and nauseous now fully resolved. She took baby aspirin x 4 which made her feel slightly better. On her way here, patient
started to experience lightheadedness and therefore she went to the local EMS. There she had an ECG performed and was told that it looked okay and she insisted on driving here herself. She currently is pain-free. She states the pain will last
minutes at a time and then spontaneously resolve without specific provoking or relieving factors.
Past History
Past History
ED Past Medical History: Arrthythmia (afib), CAD, HTN, NIDDM, [place] and Other (Spinal stenosis)
ED Past Surgical History: Gynecological (Hysterectomy), Orthopedic and Other (Hernia repair X2)
Social History
Tobacco: Former smoker
Alcohol: None
Drug: None
Living: with family
Family History
Family History: Other (Father with spinal cancer, is breast cancer and diabetes in the family)
Phy Exam
Physical Exam
Physical Exam:
GENERAL: Alert , in no apparent distress
EYE: pupils equal and reactive
NECK: Supple, no significant adenopathy.
ENT: o/p clr, mmm.
CARDIAC: Regular rate and rhythm .
LUNGS: Clear breath sounds bilaterally, no acute respiratory distress, no wheezes/rales/rhonchi
ABDOMEN: Soft, without focal tenderness, no r/g, no cvat
NEUROLOGICAL: Alert and oriented, no focal neuro deficits
SKIN: Warm and dry, skin intact.
MUSCULOSKELETAL: No edema, well perfused.
PSYCH: Normal and appropriate interaction.
Scores
Heart Score for Chest Pain Patients
STEMI patient?: Not applicable
Course
Orders/Labs/Results
Orders:
Orders
11/02/24 08:32
Electrocardiogram (*1) Urgent
Reason for Study: Chest Pain
11/02/24 08:33
EKG- Treatment ONCE
11/02/24 08:48
CMP [Comprehensive Metabolic Panel] Urgent
Complete Blood Count/With Diff Urgent
Troponin I Urgent
11/02/24 11:07
Troponin I Urgent
Abnormal Lab Results
11/02/24
08:48
MCHC 31.9 L g/dL
(33.0-37.0)
RDW 14.8 H %
(11.5-14.5)
Potassium 5.7 H mmol/L
(3.5-5.1)
Chloride 110 H mmol/L
(98-107)
Glucose 123 H mg/dl
(70-99)
ALT 41 H U/L
(0-35)
Total Protein 6.2 L g/dl
(6.3-8.2)
11/02/24 08:48
11/02/24 08:48
Vital Signs
Initial and Last Documented VS:
Initial Vital Signs
Temp Pulse Resp BP Pulse Ox
98.1 F 61 16 132/67 95
11/02/24 08:38 11/02/24 08:38 11/02/24 08:38 11/02/24 08:38 11/02/24 08:38
Last Documented Vital Signs
Temp Pulse Resp BP Pulse Ox
98.1 F 61 16 132/67 95
11/02/24 08:38 11/02/24 08:38 11/02/24 08:38 11/02/24 08:38 11/02/24 08:38
*Critical Care Note
Total Time (30-74mins, 75-104mins- exclusive of procedures): Not Applicable
Update Note
Update Note:
Patient presents to the Emergency Department with ___chest pain
Number and Complexity of Problems Addressed at the Encounter
� Chronic conditions affecting care:
� Acute Exacerbation and/or Progression of Chronic Illness:
� Differential Diagnosis includes: But not limited to ACS, pleurisy, pneumonia, musculoskeletal, anxiety, etc. etc.
Amount and/or Complexity of Data to be Reviewed and Analyzed
� I performed an independent evaluation of and my interpretation is:
EKG: Read by me, normal sinus rhythm, normal rate, normal axis, slightly flattened T waves throughout, no acute ischemia
CT:
Xrays:
Laboratory Studies: First troponin noted to be normal
Other:
� Review of other/old records reveals: Patient had an echocardiogram July 2024 demonstrating normal EF. Cath in February 19 showed mild nonobstructive disease
� Clinical information was obtained by an independent historian:
� Prescriptions/Medications Considered but not given:
� Further testing considered but not performed:
Risk of Complications and/or Morbidity or Mortality of Patient Management
� Social determinants of health affecting care:
� Discussion with other providers (PCP, Hospitalists, Consultants, etc):
� Escalation of care including admission/observation vs risk of discharge considered: Workup unremarkable here, second troponin normal, patient remains chest pain-free, discussed with patient importance of follow-up and reasons
return to the ER.
ED Attending Note
-
Portions of this chart may have been created with voice recognition software.� Occasional wrong word or��sound alike� substitutions may have occurred due to the inherent limitations of voice recognition software.
Discharge Plan
Departure
Patient Disposition: Home (Routine Discharge)
Date of Disposition: 11/02/24
Time of Disposition: 12:01
Patient with high blood pressure during this ER visit?: Yes
Condition: Good
Discharge Problem:
Chest pain
Instructions: Chest Pain CBC Follow Up, BLOOD PRESSURE
Prescriptions:
No Action
aspirin 81 MG tablet,chewable
81 mg PO HS
Eliquis 5 MG tablet
5 mg PO BID
Patient Comments:
stop 2 days pre-op
carvedilol 6.25 MG tablet
6.25 mg PO BID Qty: 60 1RF
isosorbide mononitrate 30 mg Tablet Extended Release 24 Hr
30 mg PO DAILY
meclizine 25 mg Tablet
25 mg PO PRN PRN (Reason: vertigo)
Patient Comments:
hasn't taken in awhile approx 4 mts ago for last dose
metformin 1,000 mg Tablet
1,000 mg PO QPM
lutein 20 mg Tablet
20 mg PO DAILY
Jardiance 10 mg Tablet
10 mg PO DAILY
melatonin 10 mg Tablet,Chewable
20 mg PO PRN PRN (Reason: sleep)
levofloxacin 750 mg Tablet
750 mg PO DAILY 5 Days Qty: 5 0RF
prednisone 10 mg Tablet
See Rx Instructions .ROUTE .COMPLEX Qty: 30 0RF
Rx Instructions:
Take By Mouth:
40 mg daily x3 days, 30 mg daily x3 days,
20 mg daily x3 days, 10 mg daily x3 days.
atorvastatin 40 MG tablet
40 mg PO QPM Qty: 30 0RF
Referrals:
Manuel Galvan DO [Family Provider, Family Practice]
Activity Restrictions/Additional Instructions:
PLEASE SEE YOUR DOCTOR IN CLOSE FOLLOW-UP. IF YOU DEVELOP RECURRENT CHEST PAIN, ANY SHORTNESS OF BREATH, SWEATINESS, VOMITING, BACK PAIN, DIZZINESS, OR OTHER WORRISOME SIGNS, PLEASE RETURN TO THE ER IMMEDIATELY.
Interventions
Interventions:
*Risk Screen - Suicide Last Done: 11/02/24 08:38
*Neglect/Abuse Screening Last Done: 11/02/24 08:38
Discharge Date and Time
Print Language: CYMRAES
[2024-11-02 09:30] LABS: ALT (SGPT) 41 U/L (0-35); AST (SGOT) 32 U/L (14-36); Albumin 4.1 g/dl (3.5-5.0); Alkaline Phosphatase 57 U/L (38-126); Blood Urea Nitrogen 12 mg/dl (7-17); Calcium 9.9 mg/dl (8.4-10.2); Carbon Dioxide 29 mmol/L (22-30); Chloride 110 mmol/L (98-107); Glucose 123 mg/dl (70-99); Potassium 5.7 mmol/L (3.5-5.1); Sodium 145 mmol/L (135-145); Total Bilirubin 0.6 mg/dl (0.2-1.3); Total Protein 6.2 g/dl (6.3-8.2); eGFR > 60.00
[2024-11-02 10:00] VITALS: BP 108/58
[2024-11-02 11:00] VITALS: BP 115/66
[2024-11-02 11:50] LABS: Troponin I < 0.012 ng/ml
== END 2024-11-02 12:30 | disposition home or self-care (01) ==
LOC: EMR 08:27
PROVIDERS: Emergency Medicine; EMERGENCY PHYSICIAN Emergency Medicine; FAMILY PHYSICIAN Family Medicine
DX: R07.89 Other chest pain (principal); R42 Dizziness and giddiness; R20.2 Paresthesia of skin; R11.0 Nausea; I25.10 Atherosclerotic heart disease of native coronary artery without angina pectoris; E11.9 Type 2 diabetes mellitus without complications; I10 Essential (primary) hypertension; I48.91 Unspecified atrial fibrillation; M48.00 Spinal stenosis, site unspecified; I25.2 Old myocardial infarction; Z79.82 Long term (current) use of aspirin; Z79.01 Long term (current) use of anticoagulants; Z87.891 Personal history of nicotine dependence; Z88.5 Allergy status to narcotic agent; Z88.0 Allergy status to penicillin; Z88.8 Allergy status to other drugs, medicaments and biological substances; Z91.048 Other nonmedicinal substance allergy status
CPT/HCPCS: 99283; 80053; 84484; 85025; 93005

== ENCOUNTER → 2025-04-11 06:38 | Outpatient (REF) | payer MEDICARE, OTHER, SELFPAY ==
[2025-04-11 09:58] LABS: Urine Character Clear (Clear)
[2025-04-11 10:08] LABS: Amylase 74 U/L (30-110); HDL Cholesterol 50 mg/dl; LDL Cholesterol, Calculated 33 mg/dl; Lipase 133 U/L (23-300); Magnesium 2.1 mg/dl (1.6-2.3); Uric Acid 3.5 mg/dl (2.5-6.2); Very Low Density Lipoprotein 10 mg/dl (0-30)
[2025-04-11 10:31] LABS: TSH 2.38 uIU/ml (0.47-4.68)
[2025-04-11 10:48] LABS: Urine Squamous Cell >30 /LPF (Few); Urine Urothelial Cell 0-2 /LPF (FEW)
== END ==
LOC: HWLAB 06:38
PROVIDERS: ATTENDING PHYSICIAN Family Medicine
DX: I10 Essential (primary) hypertension (principal); Z00.00 Encounter for general adult medical examination without abnormal findings; E78.5 Hyperlipidemia, unspecified; R74.8 Abnormal levels of other serum enzymes
CPT/HCPCS: 36415; 80061; 81003; 81015; 82150; 83690; 83735; 84100; 84439; 84443; 84550

== ENCOUNTER 2025-04-12 11:26 | Emergency (ER) | payer MEDICARE, OTHER, SELFPAY ==
[2025-04-12] VITALS (7 sets, daily range): BP systolic 109–142; BP diastolic 61–75; BMI 29.3
[2025-04-12 12:06] LABS: Hematocrit 39.0 % (37.0-47.0); Hemoglobin 12.8 g/dL (12.0-16.0); Mean Corp Hgb Conc. 32.8 g/dL (33.0-37.0); Mean Corpuscular Volume 91.8 fL (81.0-99.0); Nucleated Red Blood Cells % 0 %; Platelet Count 268 10^3/uL (130-400); Red Cell Dist. Width 15.0 % (11.5-14.5)
[2025-04-12 12:31] LABS: ALT (SGPT) 26 U/L (0-35); AST (SGOT) 24 U/L (14-36); Albumin 3.9 g/dl (3.5-5.0); Alkaline Phosphatase 81 U/L (38-126); Blood Urea Nitrogen 13 mg/dl (7-17); Calcium 9.4 mg/dl (8.4-10.2); Carbon Dioxide 29 mmol/L (22-30); Chloride 104 mmol/L (98-107); Estimated Creatinine Clearance 86 ml/min; Glucose 121 mg/dl (70-99); Potassium 4.7 mmol/L (3.5-5.1); Sodium 136 mmol/L (135-145); Total Protein 6.4 g/dl (6.3-8.2); eGFR > 60.00
[2025-04-12 12:43] LABS: Troponin I < 0.012 ng/ml
--- NOTE | 2025-04-12 13:02 | ED.GENMED ---
History of Present Illness
General
Chief Complaint: Chest Pain
Time Seen by Provider: 04/12/25 11:38
History of Present Illness
History of Present Illness:
74-year-old female with history of diabetes and CAD presenting to the emergency department for concern of chest pressure. Patient reports last night she was having skipped beats. She took some aspirin and went to sleep. When she woke up this
morning, felt a pressure in her throat and left side of her chest. Denies significant pain in her chest. She notes cardiac history and CAD, which prompted her to come to the hospital. Denies any difficulty breathing. Denies cough or fever.
Patient follows with cardiology. Denies abdominal pain or GI symptoms. Denies additional acute medical complaint
Past History
Past History
ED Past Medical History: Arrthythmia (afib), CAD, HTN, NIDDM, [place] and Other (Spinal stenosis)
ED Past Surgical History: Gynecological (Hysterectomy), Orthopedic and Other (Hernia repair X2)
Social History
Tobacco: Former smoker
Alcohol: None
Drug: None
Personal:
Living: with family
Family History
Family History: Other (Father with spinal cancer, is breast cancer and diabetes in the family)
Phy Exam
Physical Exam
Physical Exam:
General: Well-appearing, no clinical signs of dehydration, nontoxic and in no acute distress
HEENT: protecting airway
Neck: appears supple
CV: Normal heart rate, regular rhythm
Resp: No accessory muscle use, no increased work of breathing, lungs clear to auscultation bilaterally
Abd: Soft and non-distended, no tenderness to palpation
Extremities: No deformities, no swelling
Neuro: alert, no focal neurologic deficit
: deferred
Rectal: deferred
Psych: Normal affect
Skin: Intact
Scores
Heart Score for Chest Pain Patients
STEMI patient?: No
History: Slightly or Non-Suspicious
ECG: Normal
Age: >/= 65 years
Risk Factors: 1 or 2 Risk Factors
Troponin: </= Normal Limit
Heart Score for Chest Pain Patients: 3
Heart Score Risk: 2.5% MACE over next 6 weeks
Course
Orders/Labs/Results
Orders:
Orders
04/12/25 11:27
ECG [Electrocardiogram (*1)] Urgent
Reason for Study: Chest Pain
EKG- Treatment ONCE
04/12/25 11:57
CR Chest - 2 Views Urgent
Comment:
Reason For Exam: CP
04/12/25 11:59
Complete Blood Count/With Diff Urgent
Comprehensive Metabolic Panel Urgent
Troponin I Urgent
04/12/25 12:53
EKG- Treatment ONCE
04/12/25 13:04
EKG [Electrocardiogram (*1)] Urgent
Reason for Study: Chest Pain
EKG- Treatment ONCE
04/12/25 13:40
CT Chest Angio W/wo Iv Contras Urgent
Comment:
Reason For Exam: chest pressure, throat discomfort, flushing
04/12/25 14:09
Acetaminophen [Tylenol] 650 mg PO NOW STA
04/12/25 15:00
Electrocardiogram (*1) Urgent
Reason for Study: Chest Pain
04/12/25 15:05
Troponin I Urgent
Abnormal Lab Results
04/12/25
11:59
MCHC 32.8 L g/dL
(33.0-37.0)
RDW 15.0 H %
(11.5-14.5)
Creatinine 0.5 L mg/dL
(0.6-1.0)
Glucose 121 H mg/dl
(70-99)
04/12/25 11:59
04/12/25 11:59
Vital Signs
Initial and Last Documented VS:
Initial Vital Signs
Temp Pulse Resp BP Pulse Ox
97.5 F 64 16 142/61 97
04/12/25 11:30 04/12/25 11:30 04/12/25 11:30 04/12/25 11:30 04/12/25 11:30
Last Documented Vital Signs
Temp Pulse Resp BP Pulse Ox
97.5 F 66 15 117/75 92
04/12/25 11:30 04/12/25 14:00 04/12/25 14:00 04/12/25 15:07 04/12/25 15:45
MDM/Problems Addressed
MDM/Problems Addressed:
74-year-old female presenting to the emergency department for palpitations and chest pressure. Vital signs on arrival are normal.
On exam, patient resting comfortably, no acute distress. EKG obtained on patient's arrival, nonischemic. Reassuring cardiac and pulmonary exam. On review of EMR, patient had cardiac catheterization on 02/02/2024 which showed nonobstructive coronary
artery disease. Patient also recently had an echo 08/06/2024, without significant wall motion abnormalities or change from prior. Given this information, lower suspicion for ACS. However patient does have cardiac risk factors so we will screen
with laboratory analysis including troponin and continue to closely monitor. Will also obtain chest x-ray imaging.
13:20 - Initial troponin is negative. Chest x-ray without acute cardiopulmonary disease. Will obtain second troponin
13:30 -patient noting some increase in her symptoms, facial flushing. Repeat EKG unchanged. However, given her throat discomfort, cannot safely rule out aortic issue. Will obtain CT angio of the chest
16:20 -patient CT angio was negative for acute process. Repeat troponin is negative. On reassessment patient remains hemodynamically stable. 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 Return
precautions discussed and patient verbalized understanding.
*Pulse Oximetry
SaO2: 97
Oxygen Mode of Delivery: Room air
Patient hypoxic: no
*EKG
Interpreted by ED Provider?: Yes
EKG Intrepretation Date: 04/12/25
EKG Intrepretation Time: 13:08
Interpretation: normal
Comparison EKG: no changes (11/02/24)
Heart Rate: 62
Rate: normal
Rhythm: sinus
[place]: normal axis
Interval: normal interval
QRS Pattern: normal QRS
Ischemia: no ischemia
*Critical Care Note
Total Time (30-74mins, 75-104mins- exclusive of procedures): Not Applicable
ED Attending Note
-
Portions of this chart may have been created with voice recognition software.� Occasional wrong word or��sound alike� substitutions may have occurred due to the inherent limitations of voice recognition software.
Discharge Plan
Departure
Prescriptions:
No Action
aspirin 81 MG tablet,chewable
81 mg PO HS
Eliquis 5 MG tablet
5 mg PO BID
Patient Comments:
stop 2 days pre-op
carvedilol 6.25 MG tablet
6.25 mg PO BID Qty: 60 1RF
isosorbide mononitrate 30 mg Tablet Extended Release 24 Hr
30 mg PO DAILY
meclizine 25 mg Tablet
25 mg PO PRN PRN (Reason: vertigo)
Patient Comments:
hasn't taken in awhile approx 4 mts ago for last dose
metformin 1,000 mg Tablet
1,000 mg PO QPM
lutein 20 mg Tablet
20 mg PO DAILY
Jardiance 10 mg Tablet
10 mg PO DAILY
melatonin 10 mg Tablet,Chewable
20 mg PO PRN PRN (Reason: sleep)
levofloxacin 750 mg Tablet
750 mg PO DAILY 5 Days Qty: 5 0RF
prednisone 10 mg Tablet
See Rx Instructions .ROUTE .COMPLEX Qty: 30 0RF
Rx Instructions:
Take By Mouth:
40 mg daily x3 days, 30 mg daily x3 days,
20 mg daily x3 days, 10 mg daily x3 days.
atorvastatin 40 MG tablet
40 mg PO QPM Qty: 30 0RF
Referrals:
Manuel Galvan DO [Family Provider, Family Practice]
Interventions
Interventions:
*General Assessment Last Done: 04/12/25 11:45
*Neglect/Abuse Screening Last Done: 04/12/25 11:45
*ED- Fall Risk Assessment Last Done: 04/12/25 11:45
*ED COVID-19 Vaccine History Last Done: 04/12/25 11:45
*ED Influenza Vaccine History Last Done: 04/12/25 11:45
ED- Cardiac Assessment Last Done: 04/12/25 11:45
Discharge Date and Time
Print Language: HONDURAN
[2025-04-12] MEDS: TYLENOL 650 MG PO (14:15)
[2025-04-12 15:41] LABS: Troponin I < 0.012 ng/ml
== END 2025-04-12 16:58 | disposition home or self-care (01) ==
LOC: EMR 11:26
PROVIDERS: EMERGENCY PHYSICIAN Student in an Organized Health Care Education/Training Program; FAMILY PHYSICIAN Family Medicine
DX: R07.89 Other chest pain (principal); E11.9 Type 2 diabetes mellitus without complications; I25.10 Atherosclerotic heart disease of native coronary artery without angina pectoris; I48.91 Unspecified atrial fibrillation; I10 Essential (primary) hypertension; I25.2 Old myocardial infarction; M48.00 Spinal stenosis, site unspecified; Z79.01 Long term (current) use of anticoagulants; Z79.82 Long term (current) use of aspirin; Z79.84 Long term (current) use of oral hypoglycemic drugs; Z87.891 Personal history of nicotine dependence; Z83.3 Family history of diabetes mellitus
CPT/HCPCS: 99284; 71046; 71275; 80053; 84484; 85025; 93005; Q9967